=== PATIENT | male | born 1935 | race Caucasian/White ===

== ENCOUNTER 2017-03-12 14:11 | Emergency (ER) | payer MEDICARE, MEDICAID ==
[2017-03-12 14:39] VITALS: BP 129/55
--- NOTE | 2017-03-12 14:44 | UC ---
Upper Extremity HPI - HPI Summary HPI Summary: patient was bailing hay, tripped and fell landed with his right arm under his chest. pain in the right ribs, humerus and right clavicle. - History of Current Complaint Stated Complaint: RIGHTSIDE RIB,ARM,COLLAR PAIN-FALL 03/05 Time Seen by Provider: 03/12/17 14:32 Hx Obtained From: Patient ?: No Onset/Duration: Sudden Onset, Lasting Days Severity Initially: Moderate Severity Currently: Moderate Location Of Pain: Is Diffuse - upp right extremitiy, right ris, clavicle Character: Dull, Aching, Spasmodic, Stiffness Aggravating Factor(s): Movement Alleviating Factor(s): Nothing Associated Signs And Symptoms: Positive: Weakness Related History: Dominant Hand Right - Allergies/Home Medications Allergies/Adverse Reactions: Allergies Allergy/AdvReac Type Severity Reaction Status Date / Time No Known Allergies Allergy Verified 03/12/17 14:39 Home Medications: Home Medications Aspirin [Aspirin 81 MG TAB] 81 mg PO DAILY 03/12/17 [History Confirmed 03/12/17] Atorvastatin* [Lipitor*] 40 mg PO 1700 03/12/17 [History Confirmed 03/12/17] Insulin ASPART (NF) [Novolog (NF)] 0 units SUBCUT .enter frequency 03/12/17 [ History Confirmed 03/12/17] Insulin Detemir (NF) [Levemir (NF)] 50 unit SUBCUT BEDTIME 03/12/17 [History Confirmed 03/12/17] LevoCETirizine TAB (NF) [Xyzal TAB (NF)] 5 mg PO DAILY 03/12/17 [History Confirmed 03/12/17] Levothyroxine TAB* [Synthroid TAB*] 100 mcg PO DAILY 03/12/17 [History Confirmed 03/12/17] Magnesium [Magnesium] 400 mg PO DAILY 03/12/17 [History Confirmed 03/12/17] Midodrine HCl 10 mg PO DAILY PRN 03/12/17 [History Confirmed 03/12/17] Omeprazole CAP* [Prilosec CAP* 20 MG] 20 mg PO DAILY 03/12/17 [History Confirmed 03/12/17] Potassium Chlor TAB* [Klor Con ER TAB*] 60 meq PO DAILY 03/12/17 [History Confirmed 03/12/17] Torsemide TAB* [Demadex 20 MG*] 2 tab PO DAILY 03/12/17 [History Confirmed 03/12] PMH/Surg Hx/FS Hx/Imm Hx Previously Healthy: Yes - Surgical History Surgical History: Yes Surgery Procedure, Year, and Place: 2 hernia - Family History Known Family History: Negative: Cardiac Disease, Hypertension - Social History Alcohol Use: None Substance Use Type: None Smoking Status (MU): Never Smoked Tobacco Type: Smokeless Tobacco Amount Used/How Often: 1-2 times daily Review of Systems Constitutional: Negative Skin: Negative Eyes: Negative ENT: Negative Respiratory: Negative Cardiovascular: Negative Gastrointestinal: Negative Genitourinary: Negative Motor: Negative Neurovascular: Negative Musculoskeletal: Arthralgia, Decreased ROM, Myalgia Neurological: Negative Psychological: Negative All Other Systems Reviewed And Are Negative: Yes Physical Exam Triage Information Reviewed: Yes Vital Signs: Initial Vital Signs Temp 97.8 F 03/12/17 14:35 Pulse 74 03/12/17 14:35 Resp 16 03/12/17 14:35 BP 129/55 03/12/17 14:35 Pulse Ox 95 03/12/17 14:35 Vital Signs Reviewed: Yes Eye Exam: Normal Eyes: Positive: Conjunctiva Clear ENT Exam: Normal ENT: Positive: Hearing grossly normal, Pharynx normal, TMs normal Dental Exam: Normal Neck exam: Normal Neck: Positive: Supple, Nontender, No Lymphadenopathy Respiratory Exam: Normal Respiratory: Positive: Chest non-tender, Lungs clear, Normal breath sounds Cardiovascular Exam: Normal Cardiovascular: Positive: RRR, No Murmur, Pulses Normal Abdominal Exam: Normal Abdomen Description: Positive: Nontender, No Organomegaly, Soft Bowel Sounds: Positive: Present Musculoskeletal: Positive: No Edema, Strength Limited @ - in right upper extremity, ROM Limited @ - in right shoulder, right elbow ROM is full but elicits pain, moving fingers and wrist without difficulty Neurological Exam: Normal Psychological Exam: Normal Skin Exam: Normal Upper Extremity Course/Dx - Course Course Of Treatment: hx obtained, exam performed, meds reviewed, xrays taken, positive for 2 rib fractures, educated on what to watch for and conservative treatement - Differential Dx/Diagnosis Differential Diagnosis/HQI/PQRI: Contusion, Fracture (Closed), Strain, Sprain Provider Diagnoses: 2 rib fractures, right 6 and 7th Discharge - Discharge Plan Condition: Stable Disposition: HOME Referrals: Olivia Gonzales [Nurse Practitioner] - Additional Instructions: 1. take it easy, 2. Continue with tylenol 3. heat the area, take deep breaths 4.Follow up with any respiratory illness symptoms.
--- NOTE | 2017-03-12 15:46 | RAD ---
INDICATION: Right humerus injury. TECHNIQUE: 2 views of the right humerus were obtained. FINDINGS: The bones are in normal alignment. No fracture is seen. IMPRESSION: NO EVIDENCE FOR FRACTURE.
--- NOTE | 2017-03-12 15:47 | RAD ---
INDICATION: Right clavicle trauma. TECHNIQUE: 2 views of the right clavicle were obtained. FINDINGS: The bones are normal alignment. No fracture is seen. 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 IMPRESSION: NO EVIDENCE FOR FRACTURE.
--- NOTE | 2017-03-12 15:52 | RAD ---
INDICATION: Right rib injury. COMPARISON: Comparison is made with a prior x-ray study of the chest from the 2013. TECHNIQUE: 6 views of the right ribs were obtained. FINDINGS: There is a calcific density which projects over the right midlung likely representing pleural calcification. There is also pleural calcification at the right lung base possibly related to prior asbestos exposure. There are several old left lateral rib fractures. In addition there appear to be slightly displaced acute fractures of the right anterolateral sixth and seventh ribs. No pleural effusion is seen. IMPRESSION: 1. SLIGHTLY DISPLACED RIGHT ANTEROLATERAL SIXTH AND SEVENTH RIBS. 2. CALCIFIED PLEURAL PLAQUES SUGGESTIVE OF PRIOR ASBESTOS EXPOSURE.
== END 2017-03-12 16:28 | disposition home or self-care (01) ==
LOC: UCCORT 14:11
DX: S22.41XA Multiple fractures of ribs, right side, initial encounter for closed fracture (principal); W01.0XXA Fall on same level from slipping, tripping and stumbling without subsequent striking against object, initial encounter; Z79.82 Long term (current) use of aspirin; Z79.4 Long term (current) use of insulin; F17.290 Nicotine dependence, other tobacco product, uncomplicated
CPT/HCPCS: 99202; G0463

== ENCOUNTER 2017-11-06 07:27 | Emergency (ER) | payer MEDICARE, MEDICAID ==
[2017-11-06 07:44] VITALS: BP 105/91
--- NOTE | 2017-11-06 08:00 | ED ---
Upper Extremity Pain - HPI Summary HPI Summary: 81 yr old male with right little finger dysfunction. The patient caught his right little finger on a door four weeks ago and twisted it. Since then he has not been able to move his little finger, and it has been fixed straight. Denies pain. He has no other complaints. - History of Current Complaint Chief Complaint: UCUpperExtremity Stated Complaint: RIGHT PINKY FINGER Time Seen by Provider: 11/06/17 07:33 - Allergies/Home Medications Allergies/Adverse Reactions: Allergies Allergy/AdvReac Type Severity Reaction Status Date / Time No Known Allergies Allergy Verified 11/06/17 07:44 Home Medications: Home Medications Betamethasone Dip 0.05% ON(NF) [Betamethasone Dipr 0.05% OINT(NF)] 1 applic .SEE ORDER DAILY 11/06/17 [History Confirmed 11/06/17] Clotrimazole 1% CREAM* [Clotrimazole 1%*] 1 applic TOPICAL DAILY 11/06/17 [ History Confirmed 11/06/17] Fluticasone NASAL SPRAY 50MCG* [Flonase NASAL SPRAY 50MCG*] 2 spray BOTH NARES DAILY 11/06/17 [History Confirmed 11/06/17] Lisinopril TAB* [Prinivil TAB*] 5 mg PO DAILY 11/06/17 [History Confirmed ] Multivitamins/Minerals TAB* [Theragran/minerals TAB*] 1 tab PO DAILY 11/06/17 [ History Confirmed 11/06/17] PMH/Surg Hx/FS Hx/Imm Hx Endocrine/Hematology History: Reports: Hx Diabetes, Hx Thyroid Disease Cardiovascular History: Reports: Hx Pacemaker/ICD Denies: Hx Hypertension Respiratory History: Reports: Hx Chronic Obstructive Pulmonary Disease (COPD) - Cancer History Cancer Type, Location and Year: cataracts - Surgical History Surgery Procedure, Year, and Place: 2 hernia. pacemaker Infectious Disease History: No Infectious Disease History: Denies: Hx Human Immunodeficiency Virus (HIV), Traveled Outside the [place] in Last 30 Days - Family History Known Family History: Negative: Cardiac Disease, Hypertension - Social History Alcohol Use: Occasionally Substance Use Type: Reports: None Smoking Status (MU): Former Smoker Type: Smokeless Tobacco Amount Used/How Often: 1-2 times daily Review of Systems Constitutional: Negative Positive: Other - trauma little right finger with loss of ROM. All Other Systems Reviewed And Are Negative: Yes Physical Exam Triage Information Reviewed: Yes Vital Signs On Initial Exam: Initial Vitals Temp Pulse Resp BP Pulse Ox 97.6 F 72 20 105/91 97 11/06/17 07:37 11/06/17 07:37 11/06/17 07:37 11/06/17 07:37 11/06/17 07:37 Vital Signs Reviewed: Yes Appearance: Positive: Well-Appearing, No Pain Distress Skin: Positive: Warm, Skin Color Reflects Adequate Perfusion Head/Face: Positive: Normal Head/Face Inspection Eyes: Positive: EOMI ENT: Positive: Normal ENT inspection Respiratory/Lung Sounds: Positive: Other - normal respiratory effort Cardiovascular: Positive: Pulses are Symmetrical in both Upper and Lower Extremities - normal right upper extremity Abdomen Description: Negative: Distended Musculoskeletal: Positive: Other - right hand 5th digit without gross deformity. No focal tenderness. It is held in extended fashion and he is not able to flex it actively. Neurological: Positive: Alert, Oriented to Person Place, Time, CN Intact II-III , Normal Gait, Speech Normal Psychiatric: Positive: Normal - [place] Coma Scale Best Eye Response: 4 - Spontaneous Best Motor Response: 6 - Obeys Commands Best Verbal Response: 5 - Oriented Coma Scale Total: 15 Diagnostics - Vital Signs Vital Signs Temp Pulse Resp BP Pulse Ox 11/06/17 07:37 97.6 F 72 20 105/91 97 - Laboratory Lab Statement: Any lab studies that have been ordered have been reviewed, and results considered in the medical decision making process. - Radiology right hand Xray Interpretation: No Acute Changes Radiology Interpretation Completed By: Radiologist Course/Dx - Course Course Of Treatment: 81 yr old with right 5th digit injury. Xray read neg by radiology. Plan referral to ortho. His finger was keisha taped to the right ring finger. I contacted Dr Chavez office and they will get patient in for a visit RELL. - Diagnoses Provider Diagnoses: Contusion of right little finger Discharge - Sign-Out/Discharge Documenting (check all that apply): Discharge/Admit/Transfer - Discharge Plan Condition: Good Disposition: HOME Patient Education Materials: Finger Sprain (ED) Referrals: Amparo Hoffman MD [Primary Care Provider] - Dorian Chavez MD [Medical Doctor] - 1 Day - Billing Disposition and Condition Condition: GOOD Disposition: HOME
--- NOTE | 2017-11-06 08:25 | RAD ---
INDICATION: Right hand injury. TECHNIQUE: 4 views of the right hand were obtained. FINDINGS: There is soft tissue swelling in the fingers. The bones appear osteopenic. No fracture is seen. There is mild to moderate osteoarthritic change in the metacarpal phalangeal, proximal and distal interphalangeal joints. There are prominent vascular calcifications present. IMPRESSION: NO EVIDENCE FOR FRACTURE, IF THE PATIENT'S SYMPTOMS PERSIST, RECOMMEND FOLLOW-UP IMAGING.
== END 2017-11-06 08:59 | disposition home or self-care (01) ==
LOC: UCCORT 07:27
DX: S60.051A Contusion of right little finger without damage to nail, initial encounter (principal); X50.0XXA Overexertion from strenuous movement or load, initial encounter; Y92.9 Unspecified place or not applicable; Z87.891 Personal history of nicotine dependence
CPT/HCPCS: 99211; G0463

== ENCOUNTER 2017-11-13 12:18 | Day surgery (SDC) | payer MEDICARE, MEDICAID ==
[~2017-11-13 12:18] MED LIST: Buffered Lidocaine 0.9% SYRIN* 5 ML/SYR SYRINGE INTRADERM ONE; Famotidine TAB* 20 MG PO ONE
[2017-11-13] MEDS ORDERED: ceFAZolin 2 GM PREMIX (*) 2 GM/50 ML BAG IVPB ONE (12:33)
[2017-11-13] MEDS ORDERED: Famotidine TAB* 20 MG ONE (12:33)
[2017-11-13] MEDS ORDERED: fentaNYL* 50 MCG/ML 2 ML VIAL (100 MCG VIAL) ONE (13:16)
[2017-11-13] MEDS ORDERED: Midazolam* 1 MG/ML 2 ML VIAL (2 MG) ONE (13:16)
[2017-11-13] MEDS ORDERED: Insulin REGULAR(*) 1 UNITS UNIT SUBCUT ONE (13:52)
[2017-11-13] MEDS ORDERED: Insulin REGULAR(*) 1 UNITS UNIT ONE (13:57)
[2017-11-13] MEDS ORDERED: Bupivacaine 0.25% SDV* 30 ML ONE (15:15)
[2017-11-13] MEDS ORDERED: Lidocaine 2% PF * 5 ML VIAL ONE (16:34)
[2017-11-13] MEDS ORDERED: DiMENhydriNATE IV* 50 MG/ML VIAL ONE (16:34)
[2017-11-13] MEDS ORDERED: Dexamethasone IV* 4 MG/ML 1 ML (4 MG) ONE (16:34)
[2017-11-13] MEDS ORDERED: Propofol* 10 MG/ML 20 ML BTL IV PUSH ONE (16:34)
[2017-11-13] MEDS ORDERED: Acetaminophen TAB* 325 MG PO PRN (17:16)
[2017-11-13] MEDS ORDERED: HYDROmorphone INJ* 1 MG/ML CARPUJECT SYRINGE IV PRN (17:16)
[2017-11-13] MEDS ORDERED: Naloxone* 0.4 MG/ML 1 ML VIAL IV PRN (17:16)
[2017-11-13] MEDS ORDERED: DiMENhydriNATE IV* 50 MG/ML VIAL IV PUSH PRN (17:16)
[2017-11-13 17:52] VITALS: BP 143/73
--- NOTE | 2017-11-14 14:44 | OP ---
DATE OF OPERATION: 11/13/17 - [facility] DATE OF : 33 SURGEON: Ramiro Pennington MD. DECORATOR INSPECTOR: MARCO Rudolph. An admin assistant was needed for the procedure to aid in positioning of the arm and retraction. ANESTHESIOLOGIST: Dr. Arnold. ANESTHESIA: General. PRE-OP DIAGNOSIS: Spontaneous rupture, right small finger FDS and FDP tendon 1 month ago. POST-OP DIAGNOSIS: Spontaneous rupture, right small finger FDS and FDP tendon 1 month ago. OPERATIVE PROCEDURE: Repair of right small finger flexor tendon ruptures with right palmaris longus tendon graft transfer to the ring finger flexor digitorum profundus in the distal forearm. ESTIMATED BLOOD LOSS: 2 mL. COMPLICATIONS: None. INDICATIONS: Arnol was seen last week by me. A month ago, he felt a pop and since then he has been unable to flex his finger. I sent him to get an ultrasound, which confirmed that the rupture was within the palm. We talked to him about the ways that I could offer treating this which would be with a tendon transfer to the ring finger. I told him that I would likely need to take a tendon graft for that. He understood and wished to proceed . He understands that he likely would need an amputation as he was an uncontrolled diabetic. FINDINGS: See above and below. DESCRIPTION OF PROCEDURE: Arnol was seen in the preoperative holding area. The correct site, side, and procedure were identified. We came back to the operating room and the arm was prepped and draped in the usual fashion. A time- out was performed. The arm was exsanguinated with the Esmarch and the tourniquet was inflated to 250 mmHg. A Kg-type incision was made in the mid palm and the dissection was carried down, the palmar fascia was opened. The FDP and the FDS tendon stumps were identified in the palm. These were mobilized and I pulled on them, the small finger came down and touched the palm easily, the finger was very supple. I then made a 1-cm transverse incision just proximal to the wrist flexion crease. The palmaris longus tendon was delivered up into the wound and released distally. A tendon stripper was used to harvest the entire length of the tendon. The muscle was debrided off the proximal aspect. Proximal end was tubularized and secured with a 3-0 Ethibond suture over the last 10 cm at the tendon. At this point, I made a 5-cm longitudinal incision over the ulnar aspect of the distal forearm. Dissection was carried down between the ulnar neurovascular bundle and flexor tendons were encountered. The FDS and FDP to the small finger were encountered and left alone. The FDP to the ring finger was noted and tagged. I then used the tendon passer around the stump through the carpal tunnel out to the location of the tendon ruptures to the FDP tendon. I used the tendon passer to pull the graft into the tunnel. I then secured the distal aspect of the tendon graft to the FDP stump in a Pulvertaft weave fashion and this was secured with multiple 3-0 Ethibond sutures. I then performed a Pulvertaft weave proximally in the distal forearm wound to the ring finger FDP tendon. The small finger was set with just slightly more tension than the ring finger. The weave was secured with multiple 3-0 Ethibond sutures. The tension was checked. Everything was looking good. Therefore, I irrigated out the wounds. The wounds were all closed with 4-0 nylon suture. 4% plain Marcaine was infiltrated in all the operative wounds. The wounds were dressed with Xeroform , 4x4, sterile Webril, and a dorsal locking splint was applied, holding the wrist in neutral flexion and the MP joint in full flexion. He was then woken up and taken to recovery room in stable condition. [id number] #: [id number] AMOR
== END 2017-11-13 18:24 | disposition home or self-care (01) ==
LOC: OR 12:18
PROVIDERS: ATTEND Orthopaedic Surgery Hand Surgery
DX: S66.106A Unspecified injury of flexor muscle, fascia and tendon of right little finger at wrist and hand level, initial encounter (principal); E11.9 Type 2 diabetes mellitus without complications; Z79.4 Long term (current) use of insulin; Z95.0 Presence of cardiac pacemaker; I12.9 Hypertensive chronic kidney disease with stage 1 through stage 4 chronic kidney disease, or unspecified chronic kidney disease; Z79.899 Other long term (current) drug therapy; J44.9 Chronic obstructive pulmonary disease, unspecified; Z87.891 Personal history of nicotine dependence; N18.3 Chronic kidney disease, stage 3 (moderate); M19.90 Unspecified osteoarthritis, unspecified site; I35.0 Nonrheumatic aortic (valve) stenosis; X50.0XXA Overexertion from strenuous movement or load, initial encounter; Y92.9 Unspecified place or not applicable
CPT/HCPCS: A9270-GY; J0690; J1100; J1240; J2250; J2704; J3010

== ENCOUNTER 2019-03-27 13:12 | Emergency (ER) | payer MEDICARE, MEDICAID ==
--- OUTSIDE RECORDS SUMMARY | 2019-03-27 14:16 | XMS REPORT | Continuity of Care Document ---
:1935 External Reference #:[id number] Author Name Sheila Ventura Care Team Providers Name Role Phone Josselyn Jim MD - Care Team Information Clark Driver Nephrology Conrad Odom MD - Nephrology Care Team Information Clark Driver [phone] Amparo Hoffman MD - Internal Medicine Care Team Information Clark Driver Wiley Wilkerson MD - Endocrinology, Care Team Information Clark Driver Diabetes & Metabolism Nabil Hunt MD - Nephrology Care Team Information Clark Driver [phone] [facility] Nephrology Care Team Information Clark Driver [phone] Problems Active Problems Provider Date Edema Johny Merchant M.D., Onset: 11/01/2012 [facility] Malignant hypertensive heart disease Johny Merchant M.D., Onset: 2012 without congestive heart failure [facility] Renal failure syndrome Johny Merchant M.D., Onset: 11/01/2012 [facility] Diabetes mellitus Johny Merchant M.D., Onset: 11/01/2012 [facility] Dizziness and giddiness Johny Merchant M.D., Onset: 03/06/2013 [facility] Arthralgia of the lower leg Johny Merchant M.D., Onset: 03/18/2014 [facility] First degree atrioventricular block Johny Merchant M.D., Onset: 2014 [facility] Hypertensive heart disease without Johny Merchant M.D., Onset: 2014 heart failure [facility] Dyspnea Johny Merchant M.D., Onset: 03/08/2016 [facility] Aortic valve disorder Johny Merchant M.D., Onset: 03/08/2016 [facility] Mitral valve disorder Johny Merchant M.D., Onset: 03/08/2016 [facility] Chronic pulmonary heart disease Johny Merchant M.D., Onset: 03/08/2016 [facility] Bradycardia, unspecified Johny Merchant M.D., Onset: 03/08/2016 [facility] Chronic renal failure Johny Merchant M.D., Onset: 03/30/2016 [facility] Cardiac pacemaker in situ Johny Merchant M.D., Onset: 04/12/2016 [facility] Type 2 diabetes mellitus Johny Merchant M.D., Onset: 05/12/2016 [facility] Chronic kidney disease stage 4 Johny Merchant M.D., Onset: 05/12/2016 [facility] Tachycardia Johny Merchant M.D., Onset: 08/16/2016 [facility] Essential hypertension Jhony Merchant M.D., Onset: 08/16/2016 [facility] Hyperlipidemia Johny Merchant M.D., Onset: 08/16/2016 [facility] Hypothyroidism Amparo Hoffman MD Onset: 11/14/2016 Mixed hyperlipidemia Amparo Hoffman MD Onset: 11/14/2016 Chest pain Jonhy Merchant M.D., Onset: 03/16/2017 [facility] 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 Tinea pedis Amparo Hoffman MD Onset: 08/31/2017 Liver function tests abnormal Amparo Hoffman MD Onset: 11/03/2017 Chronic diastolic heart failure Jolynn Weems, TOMI, Onset: 2017 [employer] Paroxysmal ventricular tachycardia Johny Merchant M.D., Onset: 2018 [facility] Heart failure, unspecified Johny Merchant M.D., Onset: 11/08/2018 [facility] 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 Unknown smoker Smoking Status Reviewed: 01/22/19 Patient is a former quit 50 years ago. smoker Allergies, Adverse Reactions, Alerts Description No Known Drug Allergies Medications Active Medications SIG Qnty Indications Ordering Provider Date Amiodarone HCL 1 by mouth every 90tabs I48.1 Johny Merchant 02/21/2019 200mg day (start MSundar Jimenez, FACC Tablets 03/03/19) Klor-Con M10 4 tablets twice a I50.32 Johny Merchant 02/21/2019 10Meq day, take an extra M., MTonyDTony, FACC Tablets ER 2 tablets in the afternoon on MW only I50.9 Eliquis 1 tab by mouth twice 60tabs I48.1 Johny Merchant, 01/31/2019 2.5mg Tablets daily M.D., FACC Metolazone take 1 tab 30 I50.9 Johny Merchant, 01/31/2019 2.5mg minutes before M.D., FACC Tablets furosemide dose MWF Custom Molded custom molded 1Pair B35.1 Amparo Hoffman MD 01/22/2019 Diabetes Shoes diabetes shoes with inserts use daily E08.21 L84 Nitrostat 1 tab sl every 5 25tabs I25.10 Weems, Jolynn 10/26/2018 0.4mg Tablets min x3 chest pain TOMI Smalls, COVER MAKING MACHINE OPERATOR Sub Furosemide take 2 tablets by 120tabs I50.9 Weems, Jolynn 10/26/2018 40mg Tablets mouth twice a day TOMI Smalls, COVER MAKING MACHINE OPERATOR Pentips Pen Needle Use as Directed 100units Amparo Hoffman MD 10/17/2018 8mm Four Times A Day For Insulin Isosorbide take 1 tablet once 30tabs I50.32 Dank Jolynn 07/26/2018 Mononitrate ER daily Serina, MSN, COVER MAKING MACHINE OPERATOR 30mg Tablets ER 24HR R07.9 Betamethasone apply to affected 90gm Amparo Hoffman, 07/09/2018 Dipropionate area of right MD 0.05% Cream lower extremity daily for 2 weeks on and 2 weeks off Magnesium Take one tablet 60tabs Gagen, 04/17/2018 400mg Tablets two times a day MS Joseline, COVER MAKING MACHINE OPERATOR-C, CNM Levothyroxine Sodium 1 tab by mouth 90tabs E03.9 Amparo Hoffman, 06/05/2017 88mcg every day Tablets Levemir Flextouch 50 u subq at night 45ml Karolyn Wilkerson, 02/13/2017 100Unit/ML M.D. Solution Pen-Inject Pen Era 11/22" use as directed 1Box Amparo Hoffman, 01/24/2017 30G X 8 mm four times daily Misc for insulin Fluticasone Propionate spray 1-2 sprays 16gm Amparo Hoffman, 12/09/2016 in each nostril 50mcg/Act Suspension once every day Novolog Flexpen 14u sq before 45ml Amparo Hoffman, 12/06/2016 100Unit/ML breakfast 24u sq Solution Pen-Inject before lunch and dinner Atorvastatin Calcium take 1 tablet 90tabs Amparo Hoffman, 11/14/2016 40mg every evening Tablets Omeprazole 1 by mouth every 90caps Amparo Hoffman, 08/08/[address] day MD Collier Lancets use to test blood 200units Milton, 07/21/2016 Misc sugar 4x a day dx: MS Joseline, e11.9 COVER MAKING MACHINE OPERATOR-C, LALOM Nando Verio Check FS four 300units Amparo Hoffman, 07/21/2016 Strips times a day and if MD needed Pantoprazole Sodium 1 by mouth every Unknown 40mg day Tablets Metoprolol Succinate ER 1 tablet daily Unknown 25mg Tablets ER 24HR Combigan 1 drop both eyes Unknown 0.2-0.5% Solution twice a day Latanoprost 1 drop both eyes Unknown 0.005% Solution at hs Levocetirizine 1 by mouth every 30tabs Unknown Dihydrochloride night 5mg Tablets Aspirin 1 po qd 30tabs Unknown 81mg Tablets DR Multiple Vitamins Daily po qd Unknown Tablets History Medications Thaior-Con M10 take 4 tablets 100tabs Johny Merchant 02/15/2019 - twice daily. take Sundar Cole, [facility] Unknown 10Meq Tablets ER an extra 2 tablets m-- when metolazone is used Potassium 4 tablets twice a 270tabs Johny Merchant 02/14/2019 - Chloride Roxann ER day. Extra 2 Sundar Cole, [facility] Unknown tablets in the 10Meq Tablets ER afternoon on [facility] (when metolazone is used) Linette-Shabbir M10 2 tablets tid, I50.32 Johny Merchant 01/31/2019 - take an extra Sundar Cole, [facility] 02/21/2019 10Meq Tablets ER tablet in the Am and afternoon when taking metolazone I50.9 Metolazone take one tablet by 30tabs I50.9 Jolynn Weems 01/17/2019 - 2.5mg mouth 1/2 hour TOMI Smalls, 01/31/2019 Tablets prior to COVER MAKING MACHINE OPERATOR furosemide once daily as directed Paris Gonzalez0 2 by mouth every 90tabs I50.32 Johny Merchant 11/09/2018 - day Sundar Cole, [facility] 11/09/2018 10Meq Tablets ER Klor-Con 10 take 3tabs 360tabs I50.32 Johny Merchant 11/09/2018 - 10Meq am,3tabs Sundar Cole, [facility] 01/31/2019 Tablets ER afternoon,2tabs pm by mouth I50.9 Furosemide 3 tabs in am I50.9 Jolynn Weems 10/09/2018 - 40mg Tablets TOMI Smalls, [facility] 10/26/2018 Immunizations CPT Code Status Date Vaccine Lot # [id number] Given 03/27/2018 Influenza High Dose [id number] Given 03/24/2017 Influenza High Dose [id number] Given 05/16/2016 Influenza Vaccine (Fluzone) Age 3 And Older [id number] Given 06/25/2001 Pneumovax Injection Vital Signs Date Vital Result Comment 02/21/2019 1:27pm BP Systolic Sitting Left Arm 126 mmHg BP Diastolic Sitting Left Arm 62 mmHg Heart Rate 73 /min Respiratory Rate 18 /min Weight 247.00 lb O2 % BldC Oximetry 92 % Ora 01/31/2019 10:23am BP Systolic Sitting Right Arm 114 mmHg BP Diastolic Sitting Right Arm 68 mmHg Heart Rate 76 /min Respiratory Rate 16 /min Weight 244.00 lb O2 % BldC Oximetry 91 % Ora Results Test Date Facility Test Result H/L Range Note Basic Metabolic 02/21/2019 [facility] Glucose 243 mg/dL High 74-106 1 [address] [place] [address] [phone] BUN 48 mg/dL High 7-18 Creatinine 2.6 mg/dL High 0.6-1.3 Glom Filtration Rate, Estimate 25 mL/min >60 If 30 mL/min >60 2 BUN/Creat 18.4 ratio Sodium 136 mmol/L Normal 136-145 Potassium 3.1 mmol/L Low 3.5-5.1 Chloride 97 mmol/L Low 98-107 Carbon Dioxide 32 mmol/L Normal 21-32 Anion Gap 7 mEq/L Low 8-16 Calcium 9.9 mg/dL Normal 8.5-10.1 Laboratory test 02/21/2019 [facility] Magnesium 2.1 mg/dL Normal 1.8-2.4 finding [address] [place] [address] [phone] Basic Metabolic 02/14/2019 [facility] Glucose 76 mg/dL Normal 74-106 3 [address] [place] [address] [phone] BUN 44 mg/dL High 7-18 Creatinine 2.4 mg/dL High 0.6-1.3 Glom Filtration Rate, Estimate 28 mL/min >60 If 33 mL/min >60 4 BUN/Creat 18.3 ratio Sodium 140 mmol/L Normal 136-145 Potassium 3.2 mmol/L Low 3.5-5.1 Chloride 98 mmol/L Normal 98-107 Carbon Dioxide 33 mmol/L High 21-32 Anion Gap 9 mEq/L Normal 8-16 Calcium 9.3 mg/dL Normal 8.5-10.1 Order 01/31/2019 [facility] - Cardiology Dept. Echocardiogram <pending> [place] [address] [phone] EKG <pending> Basic Metabolic Panel 01/28/2019 [facility] Glucose 328 mg/dL High 74-[address] [place] [address] [phone] BUN 58 mg/dL High 7-18 Creatinine 2.9 mg/dL High 0.6-1.3 Glom Filtration Rate, Estimate 22 mL/min >60 If 27 mL/min >60 6 BUN/Creat 20.0 ratio Sodium 134 mmol/L Low 136-145 Potassium 3.6 mmol/L Normal 3.5-5.1 Chloride 92 mmol/L Low 98-107 Carbon Dioxide 33 mmol/L High 21-32 Anion Gap 9 mEq/L Normal 8-16 Calcium 9.2 mg/dL Normal 8.5-10.1 Laboratory test 01/28/2019 [facility] Thyroid 0.89 Normal 0.30-4.[address] Stim uIU/[place] [address] Hormone [phone] Free T4 1.35 ng/dL Normal 0.76-1.46 Comprehensive Metabolic 01/17/2019 [facility] Glucose 249 mg/dL High 74-106 [address] [place] [address] [phone] BUN 31 mg/dL High 7-18 Creatinine 2.3 mg/dL High 0.6-1.3 Glom Filtration Rate, Estimate 29 mL/min >60 If 35 mL/min >60 8 BUN/Creat 13.4 ratio Sodium 138 mmol/L Normal 136-145 Potassium 4.0 mmol/L Normal 3.5-5.1 Chloride 102 mmol/L Normal 98-107 Carbon Dioxide 28 mmol/L Normal 21-32 Anion Gap 8 mEq/L Normal 8-16 Calcium 9.0 mg/dL Normal 8.5-10.1 Total Protein 7.8 g/dL Normal 6.4-8.2 Albumin 3.4 g/dL Normal 3.4-5.0 Globulin 4.4 g/dL High 1.9-4.3 Alb/Glob 0.8 ratio Bilirubin,Total 0.4 mg/dL Normal 0.2-1.0 Sgot/Ast 30 U/L Normal 15-37 SGPT/Alt 22 U/L Normal 12-78 Alkaline Phosphatase 147 U/L High 45-117 Protein/Creatinine 01/17/2019 [facility] Creatinine,Urine 10.0 Not Ratio,Urine [address] mg/dL Estab. [place], [place] [id number] [phone] Protein,Total,Urine 8.9 mg/dL Not Estab. Protein/Creatinine Ratio 890 MG/GCRE High 0-200 9 Laboratory test 01/17/2019 [facility] PTH,Intact 68 pg/mL High 15-65 [address] [place] [address] [phone] Vitamin D,25-Hydroxy 42.4 ng/mL 30.0-100.0 11 Phosphorous 3.5 mg/dL Normal 2.5-4.0 Glycohemoglobin 01/17/2019 [facility] Glycohemoglobin 9.5 % High 4.2-6.[address] (A1c) [place] [address] [phone] eAG 226 mg/dL CBC W/Automated 01/17/2019 [facility] White Blood 7.7 K/uL Normal 3.4-10.[address] [place] [address] [phone] Red Blood Count 4.50 M/uL Normal 4.20-5.80 Hemoglobin 12.3 gm/dL Low 12.8-17.0 Hematocrit 38.9 % Normal 38.0-48.0 Mean Cell Volume 86.4 fl Normal 80.0-96.0 Mean Corpuscular HGB 27.3 pg Normal 27.0-33.0 Mean Corpuscular HGB Conc 31.6 g/dL Low 31.7-36.0 Platelet Count 341 K/uL Normal 155-360 Red Cell Distri Width SD 42.3 fl Normal 36-51 Red Cell Distri Width %CV 13.5 % Normal 11.6-15.8 Mean Platelet Volume 9.8 fl Normal 6.6-10.6 Neut% 39.5 % Normal 33.0-73.0 Lymph % 42.7 % High 20.0-42.0 Nicollet % 12.9 % High 0.0-10.0 Eo% 4.0 % Normal 0.0-6.6 Bas% 0.5 % Normal 0.0-1.1 Immature Grans 0.4 % Normal 0.0-5.0 NRBC % 0.0 /100WBC < 10/ 100 WBC Neut# 3.02 K/uL Normal 1.8-7.0 Lymph # 3.27 K/uL Normal 1.0-4.0 Nicollet # 0.99 K/uL High 0.0-0.8 Eos # 0.31 K/uL Normal 0.0-0.5 Baso # 0.04 K/uL Normal 0.0-0.1 Immature Grans Absolute 0.03 K/uL NRBC # 0.00 K/uL Basic Metabolic Panel 01/07/2019 [facility] Glucose 446 mg/dL High 74-106 13 [address] [place], [place] [id number] [phone] BUN 53 mg/dL High 7-18 Creatinine 3.1 mg/dL High 0.6-1.3 Glom Filtration Rate, Estimate 21 mL/min >60 If 25 mL/min >60 14 BUN/Creat 17.0 ratio Sodium 134 mmol/L Low 136-145 Potassium 3.6 mmol/L Normal 3.5-5.1 Chloride 96 mmol/L Low 98-107 Carbon Dioxide 28 mmol/L Normal 21-32 Anion Gap 10 mEq/L Normal 8-16 Calcium 8.9 mg/dL Normal 8.5-10.1 Basic Metabolic Panel 10/19/2018 [facility] Glucose 261 mg/dL High 74-106 15 [address] [place], [place] [address] [phone] BUN 60 mg/dL High 7-18 Creatinine 2.6 mg/dL High 0.6-1.3 Glom Filtration Rate, Estimate 25 mL/min >60 If 30 mL/min >60 16 BUN/Creat 23.0 ratio Sodium 136 mmol/L Normal 136-145 Potassium 3.5 mmol/L Normal 3.5-5.1 Chloride 94 mmol/L Low 98-107 Carbon Dioxide 36 mmol/L High 21-32 Anion Gap 6 mEq/L Low 8-16 Calcium 9.3 mg/dL Normal 8.5-10.1 Laboratory 09/25/2018 [facility] Vitamin 39.8 30.0-100.0 17, 18 test finding [address] D,25-Hydroxy ng/[place] [address] [phone] Ua RFX Micro & 09/25/2018 [facility] Urine Color YELLOW Yellow Culture II [address] [place], [place] [address] [phone] Urine Clarity CLEAR Clear Urine Glucose - Dipstick 500 mg/dL High Negative Urine Bilirubin - Dipstick NEGATIVE Negative Urine Ketone NEGATIVE mg/dL Negative Urine Specific [place] 1.010 Normal 1.010-1.030 Urine Blood NEGATIVE Negative Urine PH 7.0 Normal 6.5-7.5 Urine Protein - Dipstick TRACE mg/dL Negative Urine Urobilinogen - Dipstick 0.2 E.U./dL Normal 0.2-1.0 Urine Nitrite - Dipstick NEGATIVE Negative Urine Leuk Esterase NEGATIVE Negative Source: URINE, CLEAN CAT <SEE NOTE> 19 Protein/Creatinine 09/25/2018 [facility] Creatinine,Urine 47.7 Not Ratio,Urine [address] mg/dL Estab. [place], [place] [id number] [phone] Protein,Total,Urine 23.2 mg/dL Not Estab. Protein/Creatinine Ratio 486 MG/GCRE High 0-200 20 Laboratory test 09/25/2018 [facility] Phosphorous 3.5 mg/dL Normal 2.5-4.0 finding [address] [place], [place] [id number] [phone] PTH,Intact 80 pg/mL High 15-65 21 Basic Metabolic Panel 09/25/2018 [facility] Glucose 263 mg/dL High 74-106 [address] [place], [place] [id number] [phone] BUN 59 mg/dL High 7-18 Creatinine 3.0 mg/dL High 0.6-1.3 Glom Filtration Rate, Estimate 21 mL/min >60 If 26 mL/min >60 22 BUN/Creat 19.6 ratio Sodium 136 mmol/L Normal 136-145 Potassium 3.5 mmol/L 3.5-5.1 Chloride 98 mmol/L Normal 98-107 Carbon Dioxide 31 mmol/L Normal 21-32 Anion Gap 7 mEq/L Low 8-16 Calcium 8.5 mg/dL Normal 8.5-10.1 Glycohemoglobin 09/25/2018 [facility] Glycohemoglobin 9.1 % High 4.2-6.3 [address] (A1c) [place], [place] [id number] [phone] eAG 214 mg/dL 1 I48.0, I42.9 2 Note: Persistent reduction for 3 months or more in an eGFR <60 mL/min/1.73 m2 defines CKD. Patients with eGFR values >/=60 mL/min/1.73 m2 may also have CKD if evidence of persistent proteinuria is present. The original MDRD equation for estimated GFR is not valid for patients less than 18 years of age. Additional information may be found at www.kdoqi.org. 3 I35.0 I25.10 I50.9 4 Note: Persistent reduction for 3 months or more in an eGFR <60 mL/min/1.73 m2 defines CKD. Patients with eGFR values >/=60 mL/min/1.73 m2 may also have CKD if evidence of persistent proteinuria is present. The original MDRD equation for estimated GFR is not valid for patients less than 18 years of age. Additional information may be found at www.kdoqi.org. 5 E03.9 I50.9 6 Note: Persistent reduction for 3 months or more in an eGFR <60 mL/min/1.73 m2 defines CKD. Patients with eGFR values >/=60 mL/min/1.73 m2 may also have CKD if evidence of persistent proteinuria is present. The original MDRD equation for estimated GFR is not valid for patients less than 18 years of age. Additional information may be found at www.kdoqi.org. 7 N18.4, E08.21, N18.4 8 Note: Persistent reduction for 3 months or more in an eGFR <60 mL/min/1.73 m2 defines CKD. Patients with eGFR values >/=60 mL/min/1.73 m2 may also have CKD if evidence of persistent proteinuria is present. The original MDRD equation for estimated GFR is not valid for patients less than 18 years of age. Additional information may be found at www.kdoqi.org. 9 INFCE Result Units: mg/g creat Performed at: [facility] [address] [id number] Access Director: Tanika Arndt MD, Phone: [phone] Performed at: [address] [id number] Access Director: Tanika Arndt MD, Phone: [phone] 11 Vitamin D deficiency has been defined by the [place] of [employer] and an Endocrine Society practice guideline as a level of serum 25-OH vitamin D less than 20 ng/mL (1,2). The Endocrine Society went on to further define vitamin D insufficiency as a level between 21 and 29 ng/mL (2). 1. IOM ([place] of [employer]). 2010. Dietary reference intakes for calcium and D. [place]: The National Academies Press. 2. Amalia MF, Albino NC, Andrea DELGADILLO, et al. Evaluation, treatment, and prevention of vitamin D deficiency: an Endocrine Society clinical practice guideline. JCEM. 2010; 96(7):1911-30. Performed at: [facility] [address] [id number] Access Director: Tanika Arndt MD, Phone: [phone] 12 Elevated levels of HbA1c suggest the need for more aggressive treatment of glycemia. The [place] Diabetes Association recommends that a primary goal of therapy should be a HbA1c of <7% and that physicians should re-evaluate the treatment regimen in patients with HbA1c values consistently >8%. 13 Z95.2 14 Note: Persistent reduction for 3 months or more in an eGFR <60 mL/min/1.73 m2 defines CKD. Patients with eGFR values >/=60 mL/min/1.73 m2 may also have CKD if evidence of persistent proteinuria is present. The original MDRD equation for estimated GFR is not valid for patients less than 18 years of age. Additional information may be found at www.kdoqi.org. 15 I50.9 16 Note: Persistent reduction for 3 months or more in an eGFR <60 mL/min/1.73 m2 defines CKD. Patients with eGFR values >/=60 mL/min/1.73 m2 may also have CKD if evidence of persistent proteinuria is present. The original MDRD equation for estimated GFR is not valid for patients less than 18 years of age. Additional information may be found at www.kdoqi.org. 17 E08.21 N18.4 18 Vitamin D deficiency has been defined by the [place] of [employer] and an Endocrine Society practice guideline as a level of serum 25-OH vitamin D less than 20 ng/mL (1,2). The Endocrine Society went on to further define vitamin D insufficiency as a level between 21 and 29 ng/mL (2). 1. IOM ([place] of [employer]). 2010. Dietary reference intakes for calcium and D. [place]: The National Academies Press. 2. Amalia MF, Albino GAMBOA, Andrea DELGADILLO, et al. Evaluation, treatment, and prevention of vitamin D deficiency: an Endocrine Society clinical practice guideline. JCEM. 2010; 96(7):1911-30. Performed at: - [facility] [address] [id number] Access Director: Tanika Arndt MD, Phone: [phone] URINE, CLEAN CATCH 20 INFCE Result Units: mg/g creat Performed at: RN - [facility] [address] [id number] Access Director: Tanika Arndt MD, Phone: [phone] Performed at: [facility] [address] [id number] Access Director: Tanika Ardnt MD, Phone: [phone] Note: Persistent reduction for 3 months or more in an eGFR <60 mL/min/1.73 m2 defines CKD. Patients with eGFR values >/=60 mL/min/1.73 m2 may also have CKD if evidence of persistent proteinuria is present. The original MDRD equation for estimated GFR is not valid for patients less than 18 years of age. Additional information may be found at www.kdoqi.org. 23 Elevated levels of HbA1c suggest the need for more aggressive treatment of glycemia. The [place] Diabetes Association recommends that a primary goal of therapy should be a HbA1c of <7% and that physicians should re-evaluate the treatment regimen in patients with HbA1c values consistently >8%. Procedures Date Code Description Status 02/21/2019 17426 EKG-Tracing And Report Completed 01/31/2019 61015 Echocardiogram Complete Completed 01/31/2019 49953 Pacemaker Interrogaton Eval In Person Completed 01/31/2019 83173 EKG Interpretation And Report Only Completed 01/31/2019 42985 EKG-Tracing And Report Completed 01/17/2019 86873 EKG-Tracing And Report Completed 12/10/2018 74951 Debridement Nails Any Method 6 Or More Completed 12/10/2018 33828 Pare Hyperkeratotic Lesion, Single Completed 10/26/2018 53671 Dual Pacemaker Programming Anayisis, Review And Report Completed 10/09/2018 21341 Dual Pacemaker Programming Anayisis, Review And Report Completed 09/04/2018 73583 Debridement Nails Any Method 1-5 Completed 09/04/2018 98224 Trim Nondystrophic Nails Completed 09/04/2018 71638 Pare Hyperkeratotic Lesion, Single Completed 08/30/2018 69543 Bronchospasm Provocation Evaluation Multi Spirometric Completed Determinati 08/30/2018 58984 Spirometry Completed 02/07/2018 [id number] Diabetic Foot Exam Completed 07/10/2015 [id number] Colonoscopy Completed Medical Devices Description No Information Available Encounters Type Date Location Provider Dx Diagnosis Office Visit 02/21/2019 Cardiology Office Kia Dominguez I48.1 Persistent atrial 1:20p B., PA fibrillation I42.9 Cardiomyopathy, unspecified Z95.0 Presence of cardiac pacemaker I50.9 Heart failure, unspecified N18.4 Chronic kidney disease, stage 4 (severe) Z95.2 Presence of prosthetic heart valve I25.10 Athscl heart disease of [place] coronary artery w/o ang pctrs Office Visit 01/31/2019 10:45a Cardiology Office Angelica I48.0 Paroxysmal atrial Marlyss B., PA fibrillation I50.9 Heart failure, unspecified I42.9 Cardiomyopathy, unspecified I47.2 Ventricular tachycardia Z95.2 Presence of prosthetic heart valve I35.0 Nonrheumatic aortic (valve) stenosis I25.10 Athscl heart disease of [place] coronary artery w/o ang pctrs Z95.0 Presence of cardiac pacemaker Office Visit 01/22/2019 8:40a Primary Care Amparo Hoffman, I35.0 Nonrheumatic aortic Office MD (valve) stenosis N18.4 Chronic kidney disease, stage 4 (severe) E08.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 R60.0 Localized edema I50.9 Heart failure, unspecified Office Visit 01/17/2019 10:20a Cardiology Jolynn Weems I50.9 Heart failure , Office TOMI Smalls, unspecified COVER MAKING MACHINE OPERATOR I35.0 Nonrheumatic aortic (valve) stenosis I25.10 Athscl heart disease of [place] coronary artery w/o ang pctrs I47.2 Ventricular tachycardia N18.4 Chronic kidney disease, stage 4 (severe) Z95.0 Presence of cardiac pacemaker Office Visit 12/10/2018 8:45a Podiatry Office Sharan, I70.203 Unsp athscl [place] Gualberto, DPM arteries of extremities, bilateral legs E11.9 Type 2 diabetes mellitus without complications B35.1 Tinea unguium L84 Corns and callosities M79.672 Pain in left foot M79.671 Pain in right foot Office Visit 11/08/2018 2:20p Cardiology Johny Merchant I50.9 Heart failure, Office Sundar Cole, [facility] unspecified I35.0 Nonrheumatic aortic (valve) stenosis I25.10 Athscl heart disease of [place] coronary artery w/o ang pctrs I47.2 Ventricular tachycardia N18.4 Chronic kidney disease, stage 4 (severe) R42 Dizziness and giddiness Z95.0 Presence of cardiac pacemaker Office Visit 10/26/2018 1:20p Cardiology Jolynn Weems I50.9 Heart failure , Office TOMI Smalls, unspecified [employer]OVER MAKING MACHINE OPERATOR I35.0 Nonrheumatic aortic (valve) stenosis I25.10 Athscl heart disease of [place] coronary artery w/o ang pctrs I47.2 Ventricular tachycardia Z95.0 Presence of cardiac pacemaker I48.4 Atypical atrial flutter N18.4 Chronic kidney disease, stage 4 (severe) Office Visit 10/09/2018 Cardiology Jolynn Weems I35.0 Nonrheumatic 10:00a Office TOMI Smalls, aortic (valve) COVER MAKING MACHINE OPERATOR stenosis I50.9 Heart failure, unspecified I25.10 Athscl heart disease of [place] coronary artery w/o ang pctrs I47.2 Ventricular tachycardia Z95.0 Presence of cardiac pacemaker I48.4 Atypical atrial flutter N18.4 Chronic kidney disease, stage 4 (severe) Office Visit 10/02/2018 9:30a Primary Care [place], E08.21 Diabetes due to Office Joseline, , underlying COVER MAKING MACHINE OPERATOR-C, CNM condition w diabetic nephropathy I35.0 Nonrheumatic aortic (valve) stenosis I50.32 Chronic diastolic (congestive) heart failure N18.4 Chronic kidney disease, stage 4 (severe) B35.1 Tinea unguium R60.0 Localized edema Assessments Date Code Description Provider 02/21/2019 I48.1 Persistent atrial fibrillation Angelica Marlyss B., PA 02/21/2019 I42.9 Cardiomyopathy, unspecified Angelica, Marlyss B., PA 02/21/2019 Z95.0 Presence of cardiac pacemaker Sivan Dominguezlyss B., PA 02/21/2019 I50.9 Heart failure, unspecified Angelica, Marlyss B., PA 02/21/2019 N18.4 Chronic kidney disease, stage 4 Angelica, Marlyss B., PA (severe) 02/21/2019 Z95.2 Presence of prosthetic heart valve Sivan Dominguezlyss B., PA 02/21/2019 I25.10 Atherosclerotic heart disease of Fanta Dominguezs B., PA [place] coronary artery with 01/31/2019 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 Johny Merchant M.D., disorders [facility] 01/31/2019 I36.1 Nonrheumatic tricuspid (valve) Johny Merchant M.D., insufficiency [facility] 01/31/2019 Z95.2 Presence of prosthetic heart valve Johny Merchant M.D., [facility] 01/31/2019 I47.2 Ventricular tachycardia Johny Merchant M.D., [facility] 01/31/2019 I48.0 Paroxysmal atrial fibrillation Angelica Marlyss B., PA 01/31/2019 I50.9 Heart failure, unspecified Angelica, Marlyss B., PA 01/31/2019 I47.2 Ventricular tachycardia Angelica Marlyss B., PA 01/31/2019 I42.9 Cardiomyopathy, unspecified Angelica, Marlyss B., PA 01/31/2019 Z95.0 Presence of cardiac pacemaker Johny Merchant M.D., [facility] 01/31/2019 I47.2 Ventricular tachycardia AngelicaSivanivone Mar, PA 01/31/2019 Z95.2 Presence of prosthetic heart valve Kia Dominguez., PA 01/31/2019 I35.0 Nonrheumatic aortic (valve) stenosis Kia Dominguez, PA 01/31/2019 I25.10 Atherosclerotic heart disease of AngelicaFantamartinez Mar, PA [place] coronary artery with 01/31/2019 Z95.0 Presence of cardiac pacemaker Kia Dominguez, PA 01/31/2019 Z95.0 Presence of cardiac pacemaker Kia Dominguez, PA 01/22/2019 I35.0 Nonrheumatic aortic (valve) stenosis Amparo Hoffman MD 01/22/2019 N18.4 Chronic kidney disease, stage 4 Amparo Hoffman MD (severe) 01/22/2019 E08.21 Diabetes mellitus due to underlying Amparo Hoffman MD condition with diabetic 01/22/2019 R60.0 Localized edema Amparo Hoffman MD 01/22/2019 I50.9 Heart failure, unspecified Amparo Hoffman MD 01/17/2019 I50.9 Heart failure, unspecified Jolynn Weems, TOMI, [facility] 01/17/2019 I35.0 Nonrheumatic aortic (valve) stenosis Jolynn Weems , TOMI, [facility] 01/17/2019 I25.10 Atherosclerotic heart disease of Jolynn Weems MSN, [place] coronary artery with [facility] 01/17/2019 I47.2 Ventricular tachycardia Jolynn Weems, TOMI, [facility] 01/17/2019 N18.4 Chronic kidney disease, stage 4 Jolynn Weems, TOMI , (severe) [facility] 01/17/2019 Z95.0 Presence of cardiac pacemaker Jolynn Weems, TOMI, [facility] 12/10/2018 I70.203 Unspecified atherosclerosis of [place] Gualberto Tsang DPM arteries of extremitie 12/10/2018 E11.9 Type 2 diabetes mellitus without Gualberto Tsang DPM complications 12/10/2018 B35.1 Tinea unguium Gualberto Tsang, [facility] 12/10/2018 L84 Corns and callosities Gualberto Tsang, [facility] 12/10/2018 M79.672 Pain in left foot Gualberto Tsang, [facility] 12/10/2018 M79.671 Pain in right foot Gualberto Tsang, [facility] 11/08/2018 I50.9 Heart failure, unspecified Johny Merchant M.D., [facility] 11/08/2018 I35.0 Nonrheumatic aortic (valve) stenosis Johny Merchant M.D., [facility] 11/08/2018 I25.10 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. , [place] coronary artery with [facility] 11/08/2018 I47.2 Ventricular tachycardia Johny Merchant M.D., [facility] 11/08/2018 N18.4 Chronic kidney disease, stage 4 Johny Merchant M.D., (severe) [facility] 11/08/2018 R42 Dizziness and giddiness Johny Merchant M.D., [facility] 11/08/2018 Z95.0 Presence of cardiac pacemaker Johny Merchant M.D., [facility] 10/26/2018 I50.9 Heart failure, unspecified Jolynn Weems MSN, [facility] 10/26/2018 I35.0 Nonrheumatic aortic (valve) stenosis Jolynn Weems MSN, [facility] 10/26/2018 I25.10 Atherosclerotic heart disease of Jolynn Weems, TOMI, [place] coronary artery with [facility] 10/26/2018 I47.2 Ventricular tachycardia Jolynn Weems MSN, [facility] 10/26/2018 Z95.0 Presence of cardiac pacemaker Jolynn Weems, TOMI, [facility] 10/26/2018 I48.4 Atypical atrial flutter Jolynn Weems MSN, [facility] 10/26/2018 N18.4 Chronic kidney disease, stage 4 Jolynn Weems, TOMI , (severe) [facility] 10/09/2018 I47.2 Ventricular tachycardia Johny Merchant M.D., [facility] 10/09/2018 I47.2 Ventricular tachycardia Kia Dominguez, PA 10/09/2018 I35.0 Nonrheumatic aortic (valve) stenosis Jolynn Weems , TOMI, [facility] 10/09/2018 Z95.0 Presence of cardiac pacemaker Johny Merchant M.D., [facility] 10/09/2018 I50.9 Heart failure, unspecified Jolynn Weems, TOMI, [facility] 10/09/2018 I44.0 Atrioventricular block, first degree Johny Merchant M.D., [facility] 10/09/2018 I25.10 Atherosclerotic heart disease of Jolynn Weems, TOMI, [place] coronary artery with [facility] 10/09/2018 Z95.0 Presence of cardiac pacemaker Kia Dominguez, PA 10/09/2018 I47.2 Ventricular tachycardia Jolynn Weems, TOMI, [facility] 10/09/2018 I44.0 Atrioventricular block, first degree Kia Dominguez, PA 10/09/2018 Z95.0 Presence of cardiac pacemaker Jolynn Weems, TOMI, [facility] 10/09/2018 I48.4 Atypical atrial flutter Jolynn Weems, TOMI, [facility] 10/09/2018 N18.4 Chronic kidney disease, stage 4 Jolynn Weems, TOMI , (severe) [facility] 10/02/2018 E08.21 Diabetes mellitus due to underlying Joseline Rose MS , COVER MAKING MACHINE OPERATOR-C, condition with diabetic [facility] 10/02/2018 I35.0 Nonrheumatic aortic (valve) stenosis Joseline Rose MS , COVER MAKING MACHINE OPERATOR-C, [facility] 10/02/2018 I50.32 Chronic diastolic (congestive) heart Joseline Rose MS , COVER MAKING MACHINE OPERATOR-C, failure [facility] 10/02/2018 N18.4 Chronic kidney disease, stage 4 Joseline Rose, , COVER MAKING MACHINE OPERATOR- C, (severe) [facility] 10/02/2018 B35.1 Tinea unguium Joseline Rose MS, ROMANA, CN 10/02/2018 R60.0 Localized edema Joseline Rose, MS, COVER MAKING MACHINE OPERATOR-C, CN 09/26/2018 E08.21 Diabetes mellitus due to underlying Amparo Hoffman MD condition with diabetic 09/26/2018 I35.0 Nonrheumatic aortic (valve) stenosis Amparo Hoffman MD 09/26/2018 I50.32 Chronic diastolic (congestive) heart Amparo Hoffman MD failure 09/26/2018 N18.4 Chronic kidney disease, stage 4 Amparo Hoffman MD (severe) 09/04/2018 I70.203 Unspecified atherosclerosis of [place] Gualberto Tsang DPM arteries of extremitie 09/04/2018 E11.9 Type 2 diabetes mellitus without Gualberto Tsang DPM complications 09/04/2018 B35.1 Tinea unguium Gualberto Tsang DPM 09/04/2018 L84 Corns and callosities Gualberto Tsang DPM 09/04/2018 M20.22 Hallux rigidus, left foot Gualberto Tsang DPM 09/04/2018 M20.21 Hallux rigidus, right foot Gualberto Tsang DPM 08/30/2018 I35.0 Nonrheumatic aortic (valve) stenosis Tod Tapia MD Plan of Treatment Future Appointment(s):04/12/2019 9:00 am - Kia Dominguez PA at Cardiology [id number]/26/2019 9:15 am - Kia Dominguez PA at Cardiology Office Functional Status Functional Condition Comment Date Status Independent with all ADL's Active Oxygen 2 L 24/hr Active Standard cane is used to ambulate Active Mental Status Description No Information Available Referrals Refer to Reason for Referral Status Appt Date [facility] Nephrology Patient used to see group before. Est care Created CKD stage 4. DM retinopathy, neuropathy and nephropathy Aortic stenosis s/p TAVR CHF on diuretics, hx of CAD Baseline Cr 2.3-2.5 02/07/19 faxed notes.... LE 02/19/19 refaxed notes... LE [address] [id number] [phone] Samy Mcclain M.D. Referral for TAVR. Closed 11/27/2018 [facility] [place], [place] [address] [phone]
--- OUTSIDE RECORDS SUMMARY | 2019-03-27 14:16 | XMS REPORT | Summary of Care ---
:1935 Author Organization [facility] Address [address] [facility] [place] [address] Care Team Providers Name Role Phone Amparo Hoffman MD Primary Care Provider Reason for Visit Reason Comments Diabetes Mellitus Pt reports checking blood sugar TID. Follow Up Encounter Details Date Type Department Care Team Description 03/21/2019 Office Visit [facility] Omer, DM (diabetes mellitus), [address] [facility] type 2, [place] [address] [address] with complications [phone] [place] ([facility]) (Primary Dx) [place] [id number] [phone] Allergies No Known Allergiesdocumented as of this encounter (statuses as of 03/21/2019) Medications Medication Sig Dispensed Refills Start End Date Status Date Potassium Take 2 Tabs by 0 Active (POTASSIMIN PO) mouth THREE TIMES DAILY. 2 tab am, noon, pm Magnesium 400 MG Take 400 mg by 0 Active Oral Cap mouth TWICE DAILY. levothyroxine Take 88 mcg by 0 Active (SYNTHROID) 88 MCG mouth BEFORE Oral Tab BREAKFAST. atorvastatin Take 40 mg by 0 Active (LIPITOR) 40 MG mouth DAILY. Oral Tab Omeprazole 20 MG Take 20 mg by 0 Active Oral Tab EC mouth DAILY. Aspirin 81 MG Oral Take 81 mg by 0 Active Tab mouth DAILY. Multiple Take 1 Tab by 0 Active Vitamins-Minerals mouth DAILY. (MULTIVITAMIN ADULT PO) Glucose Blood In 1 Strip by In 0 Active Vitro Strip Vitro route THREE TIMES DAILY. One touch verio Lancets Does not 1 Each by Does not 0 Active apply Misc apply route THREE TIMES DAILY. One touch verio latanoprost 1 Drop DAILY. 0 Active (XALATAN) 0.005 % Ophthalmic Solution metolazone Take 2.5 mg by 0 Active (ZAROXOLYN) 2.5 MG mouth DAILY. Oral TabIndications: 30 minutes before torsemide if needed for fluid retention, use for 3 days at a time FLUTICASONE FUROATE [place] in nose. 0 Active NA Blood Glucose 1 Each by Does not 1 Kit 0 Active Monitoring Suppl apply route FOUR 8 (ONETOUCH VERIO IQ TIMES DAILY. E11.9 SYSTEM) w/Device Insulin dependant Does not apply Kit isosorbide Take 30 mg by 0 Active MONOnitrate (IMDUR) mouth DAILY. 30 MG Oral TABLET SR 24 HR Levocetirizine Take 1 Tab by 0 Active Dihydrochloride 5 mouth DAILY. MG Oral Tab furosemide (LASIX) Take 80 mg by 0 Active 40 MG Oral Tab mouth TWICE DAILY. Am and noon Brimonidine Place to the 0 Active Tartrate-Timolol external eye (COMBIGAN) 0.2-0.5 DIRECTED. % Ophthalmic Solution Insulin Aspart Inject 14-24 Units 15 mL 5 Active (NOVOLOG FLEXPEN) beneath the skin 9 100 UNIT/ML THREE TIMES DAILY Subcutaneous BEFORE MEALS. MDD Solution 72 units Pen-injectorIndicat Indications: 14 ions: 14 units am, units am, 24 units 24 units afternoon afternoon and and evening evening metoprolol take 1 tablet by 30 Tab 0 Active succinate (TOPROL mouth once daily 9 XL) 25 MG Oral TABLET SR 24 HR LEVEMIR FLEXTOUCH inject 50 units 15 mL Active 100 UNIT/ML subcutaneously 9 Subcutaneous daily Solution Pen-injector apixaban (ELIQUIS) Take 2.5 mg by 0 Active 2.5 MG Oral Tab mouth TWICE DAILY. MAGNESIUM PO Take 400 mg by 0 Active mouth DAILY. 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 documented as of this encounter Last Filed Vital Signs Vital Sign Reading Time Taken Comments Blood Pressure 128/70 03/21/2019 1:15 PM EDT Pulse 88 03/21/2019 1:15 PM EDT Temperature - - Respiratory Rate - - Oxygen Saturation - - Inhaled Oxygen Concentration - - Weight 113.4 kg (250 lb 1.6 oz) 03/21/2019 1:15 PM EDT Height 172.7 cm (5' 8") 03/21/2019 1:15 PM EDT Body Mass Index 38.03 03/21/2019 1:15 PM EDT documented in this encounter Patient Instructions Patient InstructionsMary Carmen Tello FNP - 03/21/2019 1:20 PM EDTNEW INJECTION SITE INCREASE LEVEMIR TO 56 UNITS documented in this encounter Progress Notes Mary Carmen Tello FNP - 03/21/2019 1:20 PM EDT NAME: Arnol Baxter : 1935 DATE: 03/21/2019 SUBJECTIVE: Arnol Baxter is a 83-y.o. male is here for follow up for his Diabetes Mellitus type 2 for 54 years. Today , he is accompanied by his son. A1C unchanged at 9.5. Blood sugars reviewed. He is testing 4 times daily Range > 200. He feels he does pretty well with diet, apparently his family keeps a pretty close eye on him. 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 Denies any episode of hypoglycemia requiring assistance. Reports he feels low by 70. Is current on opthalmologic exam. Reports no history of retinopathy. Has distal neuropathy. Has stage IV CKD and follows withnephrology in [place]. Has a pacemaker and follows with Cardiology in [place]. Current medications, allergies, and all history have been reviewed. Current Outpatient Medications Medication Sig apixaban (ELIQUIS) 2.5 MG Oral Tab Take 2.5 mg by mouth TWICE DAILY. Aspirin 81 MG Oral Tab Take 81 mg by mouth DAILY. atorvastatin (LIPITOR) 40 MG Oral Tab Take 40 mg by mouth DAILY. Blood Glucose Monitoring Suppl (99times.cn VERIO IQ SYSTEM) w/Device Does not apply Kit 1 Each by Does not apply route FOUR TIMES DAILY. E11.9 Insulin dependant Brimonidine Tartrate-Timolol (COMBIGAN) 0.2-0.5 % Ophthalmic Solution Place to the external eye DIRECTED. FLUTICASONE FUROATE NA [place] in nose. furosemide (LASIX) 40 MG Oral Tab Take 80 mg by mouth TWICE DAILY. Am and noon Glucose Blood In Vitro Strip 1 Strip by In Vitro route THREE TIMES DAILY. One touch verio Insulin Aspart (NOVOLOG FLEXPEN) 100 UNIT/ML Subcutaneous Solution Pen- injector Inject 14-24 Units beneath the skin THREE TIMES DAILY BEFORE MEALS. MDD 72 units Indications: 14 units am, 24 units afternoon and evening isosorbide MONOnitrate (IMDUR) 30 MG Oral TABLET SR 24 HR Take 30 mg by mouth DAILY. Lancets Does not apply Misc 1 Each by Does not apply route THREE TIMES DAILY. One touch verio latanoprost (XALATAN) 0.005 % Ophthalmic Solution 1 Drop DAILY. LEVEMIR FLEXTOUCH 100 UNIT/ML Subcutaneous Solution Pen-injector inject 50 units subcutaneously daily Levocetirizine Dihydrochloride 5 MG Oral Tab Take 1 Tab by mouth DAILY. levothyroxine (SYNTHROID) 88 MCG Oral Tab Take 88 mcg by mouth BEFORE BREAKFAST. Magnesium 400 MG Oral Cap Take 400 mg by mouth TWICE DAILY. MAGNESIUM PO Take 400 mg by mouth DAILY. metolazone (ZAROXOLYN) 2.5 MG Oral Tab Take 2.5 mg by mouth DAILY. metoprolol succinate (TOPROL XL) 25 MG Oral TABLET SR 24 HR take 1 tablet by mouth once daily Multiple Vitamins-Minerals (MULTIVITAMIN ADULT PO) Take 1 Tab by mouth DAILY. Omeprazole 20 MG Oral Tab EC Take 20 mg by mouth DAILY. Potassium (POTASSIMIN PO) Take 2 Tabs by mouth THREE TIMES DAILY. 2 tab am, noon, pm No current facility-administered medications for this visit. No Known Allergies Past Medical History: Diagnosis Date GERD (gastroesophageal reflux disease) Social History Socioeconomic History Marital status: Spouse name: Not on file Number of children: Not on file Years of education: Not on file Highest education level: Not on file Occupational History Not on file Social Needs Financial resource strain: Not on file Food insecurity: Worry: Not on file Inability: Not on file Transportation needs: Medical: Not on file Non-medical: Not on file Tobacco Use Smoking status: Former Smoker Types: Cigars Last attempt to quit: 09/05/1988 Years since quittin.5 Smokeless tobacco: Never Used Substance and Sexual Activity Alcohol use: Not Currently Comment: occasional Drug use: Never Sexual activity: Not Currently Lifestyle Physical activity: Days per week: Not on file Minutes per session: Not on file Stress: Not on file Relationships Social connections: Talks on phone: Not on file Gets together: Not on file Attends hinduism service: Not on file Active member of club or organization: Not on file Attends meetings of clubs or organizations: Not on file Relationship status: Not on file Intimate partner violence: Fear of current or ex partner: Not on file Emotionally abused: Not on file Physically abused: Not on file Forced sexual activity: Not on file Other Topics Concern Not on file Social History Narrative Not on file OBJECTIVE: Blood pressure 128/70, pulse 88, height 5' 8" (1.727 m), weight 250 lb 1.6 oz (113.4 kg).BP 128/70 | Pulse 88 | Ht 5' 8" (1.727 m) | Wt 250 lb 1.6 oz (113.4 kg) | BMI 38.03 kg/m General: no distress. Eyes: Conjunctiva pink Neck: no thyroid enlargement or nodules. Heart: regular rate and rhythm, no murmur. Lungs: Clear to auscultation. Abdomen: Bowel sounds present Left foot Diabetic foot exam: Visual exam: normal Sensory: filament testing diminished Pulse: no pulse could be palpated Right foot diabetic exam Visual exam: normal Sensory: Filament testing diminished Pulse: no pulse could be palpated Extremities: + +edema with blistering Psych: Alert and oriented. ASSESSMENT and PLAN: 1. Diabetes mellitus type 2 with nephrology, neurology Insulin adjusted Call me blood sugars in two weeks Labs today 2. Nephropathy Recheck today 3. Neuropathy stable 4. Edema Diuretic was recently changed per nephrology 5. Hyperlipidemia Continue statin 6. Hypertension Acceptable control Will call PMD for recent labs Patient Instructions NEW INJECTION SITE INCREASE LEVEMIR TO 56 UNITS CRISTIAN [facility] Section of Endocrinology 03/21/2019 13:56 2 :09 PM EDTdocumented in this encounter Plan of Treatment Date Type Specialty Care Team Description 09/19/2019 Office Visit Endocrinology Mary Carmen Tello FNP [address] [facility] [address] Name Type Priority Associated Diagnoses Date/Time COMPREHENSIVE METABOLIC Lab Routine DM (diabetes mellitus), 03/21/2019 1: 42 PM PANEL type 2, uncontrolled with EDT complications (HCC) MICROALBUMIN, RANDOM Lab Routine DM (diabetes mellitus), 03/21/2019 1:45 PM URINE W/ CREATININE type 2, uncontrolled with EDT complications (HCC) THYROID STIMULATING Lab Routine DM (diabetes mellitus), 03/21/2019 1:42 PM HORMONE type 2, uncontrolled with EDT complications (HCC) Name Type Priority Associated Diagnoses Order Schedule COMPREHENSIVE METABOLIC Lab Routine DM (diabetes mellitus), Expected: 03/21 PANEL type 2, uncontrolled (Approximate), with complications (HCC) Expires: 09/17/2019 MICROALBUMIN, RANDOM Lab Routine DM (diabetes mellitus), 1 Occurrences starting URINE W/ CREATININE type 2, uncontrolled 03/21/2019 until with complications (HCC) 09/17/2019 THYROID STIMULATING Lab Routine DM (diabetes mellitus), Expected: 2018 HORMONE type 2, uncontrolled (Approximate), with complications (HCC) Expires: 09/17/2019 Health Maintenance Due Date Last Done Comments Diabetic Eye Exam 1935 HEMOGLOBIN A1C 1935 MEDICARE ANNUAL WELLNESS 1935 VISIT URINE MICROALBUMIN 1935 DEPRESSION SCREENING 1946 HIV SCREENING 1949 ZOSTER IMMUNIZATION SERIES 1984 (1 of 2) FALL RISK ASSESSMENT 12/16/1999 PNEUMOCOCCAL 65+YRS (1 of 2 12/16/1999 - PCV13) INFLUENZA VACCINE (#1) 2019 FOOT EXAM 08/02/2019 08/02/2018, 08/02/2018, 08/02/2018, Additional history exists HPV IMMUNIZATION SERIES Aged Out No longer eligible based on patient's age to complete this topic MENINGOCOCCAL VACCINE IMM Aged Out No longer eligible based on patient's age to complete this topic documented as of this encounter Results Not on filedocumented in this encounter Visit Diagnoses Diagnosis DM (diabetes mellitus), type 2, uncontrolled with complications (HCC) - Primary Type II or unspecified type diabetes mellitus with unspecified complication, uncontrolled documented in this encounter Insurance Payer Benefit Plan / Subscriber ID Effective Dates Phone Address Type Group WELLCARE WELLCARE xxxxxxxxx Effective for Medicare TODAYS OPTIONS TODAYS OPTIONS all dates Advantage MEDICAID [facility] xxxxxxxx 2017-[place] t documented as of this encounter
--- OUTSIDE RECORDS SUMMARY | 2019-03-27 14:16 | XMS REPORT | Continuity of Care Document ---
:1935 External Reference #:[id number] Author Name Kia Dominguez PA (transmitted by agent of provider Quita Liang) Address [address], [address] [place] [address] Care Team Providers Name Role Phone Josselyn Jim MD - Care Team Information Aviation Survival Technician [phone] Nephrology Conrad Odom MD - Nephrology Care Team Information Aviation Survival Technician [phone] Amparo Hoffman MD - Internal Medicine Care Team Information Aviation Survival Technician [phone] Wiley Wilkerson MD - Endocrinology, Care Team Information Aviation Survival Technician [phone] Diabetes & Metabolism Nabil Hunt MD - Nephrology Care Team Information Aviation Survival Technician [phone] [facility] Nephrology Care Team Information Aviation Survival Technician [phone] Problems Active Problems Provider Date Edema Johny Merchant M.D., Onset: 11/01/2012 [facility]AC Malignant hypertensive heart disease Johny Merchant M.D., Onset: 2012 without congestive heart failure FAC Renal failure syndrome Johny Merchant M.D., Onset: 11/01/2012 [facility] Diabetes mellitus Johny Merchant M.D., Onset: 11/01/2012 [facility] Dizziness and giddiness Johny Merchant M.D., Onset: 03/06/2013 [facility] Arthralgia of the lower leg Johny Merchant M.D., Onset: 03/18/2014 [facility] First degree atrioventricular block Johny Merchant M.D., Onset: 2014 [facility] Hypertensive heart disease without Johny Merchant M.D., Onset: 2014 heart failure [facility] Dyspnea Johny Merchant M.D., Onset: 03/08/2016 [facility] Aortic valve disorder Johny Merchant M.D., Onset: 03/08/2016 [facility] Mitral valve disorder Johny Merchant M.D., Onset: 03/08/2016 [facility] Chronic pulmonary heart disease Johny Merchant M.D., Onset: 03/08/2016 [facility] Bradycardia, unspecified Johny Merchant M.D., Onset: 03/08/2016 [facility] Chronic renal failure Johny Merchant M.D., Onset: 03/30/2016 [facility] Cardiac pacemaker in situ Johny Merchant M.D., Onset: 04/12/2016 [facility] Type 2 diabetes mellitus Johny Merchant M.D., Onset: 05/12/2016 [facility] Chronic kidney disease stage 4 Johny Merchant M.D., Onset: 05/12/2016 [facility] Tachycardia Johny Merchant M.D., Onset: 08/16/2016 [facility] Essential hypertension Johny Merchant M.D., Onset: 08/16/2016 [facility] Hyperlipidemia Johny Merchant M.D., Onset: 08/16/2016 [facility] Hypothyroidism Amparo Hoffman MD Onset: 11/14/2016 Mixed hyperlipidemia Amparo Hoffman MD Onset: 11/14/2016 Chest pain Johny Merchant M.D., Onset: 03/16/2017 [facility] 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 Tinea pedis Amparo Hoffman MD Onset: 08/31/2017 Liver function tests abnormal Amparo Hoffman MD Onset: 11/03/2017 Chronic diastolic heart failure Jolynn Weems, MSN, Onset: 2017 ACCELERATOR SYSTEMS DIRECTOR Paroxysmal ventricular tachycardia Johny Merchant M.D., Onset: 2018 [facility] Heart failure, unspecified Johny Merchant M.D., Onset: 11/08/2018 [facility]AC 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., 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 [facility] pectoris Social History Type Date Description Comments [...] 02/21/2019 10Meq day, take an extra M., MNusrat., FACC Tablets ER 2 tablets in the afternoon on MWF only I50.9 Eliquis 1 tab by mouth [...] 1 tab sl every 5 25tabs I25.10 Jolynn Weems 10/26/2018 0.4mg Tablets min x3 chest pain TOMI Smalls, ACCELERATOR SYSTEMS DIRECTOR Sub Furosemide take 2 tablets by 120tabs I50.9 Weems, Jolynn 10/26/2018 40mg Tablets mouth twice a day TOMI Smalls, ACCELERATOR SYSTEMS DIRECTOR Pentips Pen Needle Use as Directed 100units Amparo Hoffman MD 10/17/2018 8mm Four Times A Day For Insulin Isosorbide take 1 tablet once 30tabs I50.32 Weems, Jolynn 07/26/2018 Mononitrate ER daily TOMI Smalls, CRISTIAN 30mg Tablets ER 24HR R07.9 Betamethasone apply to affected 90gm Amparo Hoffman, 07/09/2018 Dipropionate area of right MD 0.05% Cream lower extremity daily for 2 weeks on and 2 weeks off Magnesium Take one tablet 60tabs Gagnilsa, 04/17/2018 400mg Tablets two times a day MS Joseline, ACCELERATOR SYSTEMS DIRECTOR-C, CNM Levothyroxine Sodium 1 tab by mouth 90tabs E03.9 Amparo Hoffman, 06/05/2017 88mcg every day Tablets Levemir Flextouch 50 u subq at night 45ml LitKarolyn sadler, 02/13/2017 100Unit/ML M.D. Solution Pen-Inject Pen Holton 11/22" use as directed 1Box Amparo Hoffman, 01/24/2017 30G X 8 mm four times daily Misc for insulin Fluticasone Propionate spray 1-2 sprays 16gm Amparo Hoffman, 12/09/2016 in each nostril 50mcg/Act Suspension once every day Novolog Flexpen 14u sq before 45ml Amparo Hfofman, 12/06/2016 100Unit/ML breakfast 24u sq Solution Pen-Inject before lunch and dinner Atorvastatin Calcium take 1 tablet 90tabs Amparo Hoffman, 11/14/2016 40mg every evening Tablets Omeprazole 1 by mouth every 90caps Amparo Hoffman, 08/08/[address] day MD Collier Lancets use to test blood 200units Milton, 07/21/2016 Misc sugar 4x a day dx: MS Joseline, e11.9 ACCELERATOR SYSTEMS DIRECTOR-C, LALOM Onepat Verio Check FS four 300units Amparo Hoffman, 07/21/2016 Strips times a day and if MD needed Pantoprazole Sodium 1 by mouth every Unknown 40mg day Tablets DR Metoprolol Succinate ER 1 tablet daily Unknown 25mg Tablets ER 24HR Combigan 1 drop both eyes Unknown 0.2-0.5% Solution twice a day Latanoprost 1 drop both eyes Unknown 0.005% Solution at hs Levocetirizine 1 by mouth every 30tabs Unknown Dihydrochloride night 5mg Tablets Aspirin 1 po qd 30tabs Unknown 81mg Tablets DR Multiple Vitamins Daily po qd Unknown Tablets History Medications Klor-Con M10 take 4 tablets 100tabs Johny Merchant 02/15/2019 - twice daily. take Sundar Cole, [facility] Unknown 10Meq Tablets ER an extra 2 tablets -- when metolazone is used Potassium 4 tablets twice a 270tabs Johny Merchant 02/14/2019 - Chloride Roxann ER day. Extra 2 Sundar Cole, [facility] Unknown tablets in the 10Meq Tablets ER afternoon on MW (when metolazone is used) Thaior-Con M10 2 tablets tid, I50.32 Johny Merchant 01/31/2019 - take an extra Sundar Cole, [facility] 02/21/2019 10Meq Tablets ER tablet in the Am and afternoon when taking metolazone I50.9 Metolazone take one tablet by 30tabs I50.9 Jolynn Weems 01/17/2019 - 2.5mg mouth 1/2 hour TOMI Smalls, 01/31/2019 Tablets prior to ACCELERATOR SYSTEMS DIRECTOR furosemide once daily as directed Klor-Con M10 2 by mouth every 90tabs I50.32 Johny Merchant 11/09/2018 - day Sundar Cole, [facility] 11/09/2018 10Meq Tablets ER Klor-Con 10 take 3tabs 360tabs I50.32 Johny Merchant 11/09/2018 - 10Meq am,3tabs Sundar Cole, [facility] 01/31/2019 Tablets ER afternoon,2tabs pm by mouth I50.9 Furosemide 3 tabs in am I50.9 Jolynn Weems 10/09/2018 - 40mg Tablets Serina, MSN, ACCELERATOR SYSTEMS DIRECTOR 10/26/2018 Immunizations CPT Code Status Date Vaccine Lot # [id number] Given 03/27/2018 Influenza High Dose [id number] Given 03/24/2017 Influenza High Dose [id number] Given 05/16/2016 Influenza Vaccine (Fluzone) Age 3 And Older [id number] Given 06/25/2001 Pneumovax Injection Vital Signs Date [...] 243 mg/dL High 74-106 1 Panel [address] [place], [place] [id number] [phone] BUN 48 mg/dL High 7-18 Creatinine 2.6 [...] Magnesium 2.1 mg/dL Normal 1.8-2.4 finding [address] [place], [place] [address] [phone] Basic Metabolic 02/14/2019 [facility] Glucose 76 mg/dL Normal 74-106 3 Panel [address] [place], [place] [address] [phone] BUN 44 mg/dL High 7-18 Creatinine 2.4 mg/dL High 0.6-1.3 Glom Filtration Rate, Estimate 28 mL/min >60 If 33 mL/min >60 4 BUN/Creat 18.3 ratio Sodium 140 mmol/L Normal 136-145 Potassium 3.2 mmol/L Low 3.5-5.1 Chloride 98 mmol/L Normal 98-107 Carbon Dioxide 33 mmol/L High 21-32 Anion Gap 9 mEq/L Normal 8-16 Calcium 9.3 mg/dL Normal 8.5-10.1 Order 01/31/2019 [facility] - Cardiology Dept. Echocardiogram <pending> JAMES [place] [id number] [phone] EKG <pending> Basic Metabolic Panel 01/28/2019 [facility] Glucose 328 mg/dL High 74-[address] JAMES [place] [id number] [phone] BUN 58 mg/dL High 7-18 Creatinine 2.9 mg/dL High 0.6-1.3 Glom Filtration Rate, Estimate 22 mL/min >60 If 27 mL/min >60 6 BUN/Creat 20.0 ratio Sodium 134 mmol/L Low 136-145 Potassium 3.6 mmol/L Normal 3.5-5.1 Chloride 92 mmol/L Low 98-107 Carbon Dioxide 33 mmol/L High 21-32 Anion Gap 9 mEq/L Normal 8-16 Calcium 9.2 mg/dL Normal 8.5-10.1 Laboratory test 01/28/2019 [facility] Thyroid 0.89 Normal 0.30-4.[address] Stim uIU/[place] [address] Hormone [phone] Free T4 1.35 ng/dL Normal 0.76-1.46 CBC W/Automated 01/17/2019 [facility] White Blood 7.7 K/uL Normal 3.4-10.5 [address] [place] [address] [phone] Red Blood Count 4.50 M/uL Normal 4.20-5.80 [...] 33.0-73.0 Lymph % 42.7 % High 20.0-42.0 Ceiba % 12.9 % High 0.0-10.0 Eo% 4.0 % Normal 0.0-6.6 Bas% 0.5 % Normal 0.0-1.1 Immature Grans 0.4 % Normal 0.0-5.0 NRBC % 0.0 /100WBC < 10/ 100 WBC Neut# 3.02 K/uL Normal 1.8-7.0 Lymph # 3.27 K/uL Normal 1.0-4.0 Ceiba # 0.99 K/uL High 0.0-0.8 Eos # 0.31 K/uL Normal 0.0-0.5 Baso # 0.04 K/uL Normal 0.0-0.1 Immature Grans Absolute 0.03 K/uL NRBC # 0.00 K/uL Glycohemoglobin 01/17/2019 [facility] Glycohemoglobin 9.5 % High 4.2-6.[address] (A1c) [place], [place] [id number] [phone] eAG 226 mg/dL Laboratory test 01/17/2019 [facility] PTH,Intact 68 pg/mL High 15-65 [address] [place], [place] [address] [phone] Vitamin D,25-Hydroxy 42.4 ng/mL 30.0-100.0 10 Phosphorous 3.5 mg/dL Normal 2.5-4.0 Protein/Creatinine 01/17/2019 [facility] Creatinine,Urine 10.0 Not Ratio,Urine [address] mg/dL Estab. [place], [place] [id number] [phone] Protein,Total,Urine 8.9 mg/dL Not Estab. Protein/Creatinine Ratio 890 MG/GCRE High 0-200 11 Comprehensive Metabolic 01/17/2019 [facility] Glucose 249 mg/dL High 74-106 Panel [address] [place], [place] [address] [phone] BUN 31 mg/dL High 7-18 Creatinine 2.3 mg/dL High 0.6-1.3 Glom Filtration Rate, Estimate 29 mL/min >60 If 35 mL/min >60 12 BUN/Creat 13.4 ratio Sodium 138 mmol/L Normal [...] 12-78 Alkaline Phosphatase 147 U/L High 45-117 Basic Metabolic Panel 01/07/2019 [facility] Glucose 446 mg/dL High 74-106 13 [address] [place], [place] [address] [phone] BUN 53 mg/dL High 7-18 Creatinine 3.1 mg/dL High 0.6-1.3 Glom Filtration Rate, Estimate 21 mL/min >60 If 25 mL/min >60 14 BUN/Creat 17.0 ratio Sodium 134 mmol/L Low 136-145 Potassium 3.6 mmol/L Normal 3.5-5.1 Chloride 96 mmol/L Low 98-107 Carbon Dioxide 28 mmol/L Normal 21-32 Anion Gap 10 mEq/L Normal 8-16 Calcium 8.9 mg/dL Normal 8.5-10.1 Basic Metabolic Panel 10/19/2018 [facility] Glucose 261 mg/dL High 74-106 15 [address] [place], [place] [address] [phone] BUN 60 mg/dL High 7-18 Creatinine 2.6 mg/dL High 0.6-1.3 Glom Filtration Rate, Estimate 25 mL/min >60 If 30 mL/min >60 16 BUN/Creat 23.0 ratio Sodium 136 mmol/L Normal 136-145 Potassium 3.5 mmol/L Normal 3.5-5.1 Chloride 94 mmol/L Low 98-107 Carbon Dioxide 36 mmol/L High 21-32 Anion Gap 6 mEq/L Low 8-16 Calcium 9.3 mg/dL Normal 8.5-10.1 Basic Metabolic Panel 09/25/2018 [facility] Glucose 263 mg/dL High 74-106 17 [address] [place], [place] [address] [phone] BUN 59 mg/dL High 7-18 Creatinine 3.0 mg/dL High 0.6-1.3 Glom Filtration Rate, Estimate 21 mL/min >60 If 26 mL/min >60 18 BUN/Creat 19.6 ratio Sodium 136 mmol/L Normal 136-145 Potassium 3.5 mmol/L 3.5-5.1 Chloride 98 mmol/L Normal 98-107 Carbon Dioxide 31 mmol/L Normal 21-32 Anion Gap 7 mEq/L Low 8-16 Calcium 8.5 mg/dL Normal 8.5-10.1 Laboratory test 09/25/2018 [facility] Phosphorous 3.5 mg/dL Normal 2.5-4.0 finding [address] [place], [place] [address] [phone] PTH,Intact 80 pg/mL High 15-65 19 Protein/Creatinine 09/25/2018 [facility] Creatinine,Urine 47.7 Not Ratio,Urine [address] mg/dL [facility] [place], [place] [address] [phone] Protein,Total,Urine 23.2 mg/dL Not Estab. Protein/Creatinine Ratio 486 MG/GCRE High 0-200 20 Ua RFX Micro & Culture 09/25/2018 [facility] Urine Color YELLOW Yellow II [address] [place] [address] [phone] Urine Clarity CLEAR Clear Urine Glucose - Dipstick 500 mg/dL High Negative Urine Bilirubin - Dipstick NEGATIVE Negative Urine Ketone NEGATIVE mg/dL Negative Urine Specific Barron 1.010 Normal 1.010-1.030 Urine Blood NEGATIVE Negative Urine PH 7.0 Normal 6.5-7.5 Urine Protein - Dipstick TRACE mg/dL Negative Urine Urobilinogen - Dipstick 0.2 E.U./dL Normal 0.2-1.0 Urine Nitrite - Dipstick NEGATIVE Negative Urine Leuk Esterase NEGATIVE Negative Source: URINE, CLEAN CAT <SEE NOTE> 21 Laboratory test 09/25/2018 [facility] Vitamin 39.8 30.0-100.0 [address] D,25-Hydroxy ng/[place] [address] [phone] Glycohemoglobin 09/25/2018 [facility] Glycohemoglobin 9.1 % High 4.2-6.3 [address] (A1c) [place] [address] [phone] eAG 214 mg/dL 1 I48.0, I42.9 2 [...] at www.kdoqi.org. 7 N18.4, E08.21, N18.4 8 Elevated levels of HbA1c suggest the need for more aggressive treatment of glycemia. The [place] Diabetes Association recommends that a primary goal of therapy should be a HbA1c of <7% and that physicians should re-evaluate the treatment regimen in patients with HbA1c values consistently >8%. 9 Performed at: [facility] [id number] Pump Rebuilder: Tanika Arndt MD, Phone: [phone] 10 Vitamin D deficiency has been defined by the [place] [employer] and an Endocrine Society practice guideline as a level of serum 25-OH vitamin D less than 20 ng/mL (1,2). The Endocrine Society went on to further define vitamin D insufficiency as a level between 21 and 29 ng/mL (2). 1. IOM ([place] [employer]). 2010. Dietary reference intakes for calcium and D. [place]: The National Academies Press. 2. Amalia MF, Albino NC, Andrea DELGADILLO, et al. Evaluation, treatment, and prevention of vitamin D deficiency: an Endocrine Society clinical practice guideline. JCEM. 2010; 96(7):1911-30. Performed at: [facility] [id number] Pump Rebuilder: Tanika Arndt MD, Phone: [phone] INFCE Result Units: mg/g creat Performed at: [facility] [id number] Pump Rebuilder: Tanika Arndt MD, Phone: [phone] 12 Note: Persistent reduction for 3 months or more in an eGFR <60 mL/min/1.73 m2 defines CKD. Patients with eGFR values >/=60 mL/min/1.73 m2 may also have CKD if evidence of persistent proteinuria is present. The original MDRD equation for estimated GFR is not valid for patients less than 18 years of age. Additional information may be found at www.kdoqi.org. 13 Z95.2 14 Note: Persistent reduction for [...] found at www.kdoqi.org. 17 E08.21 N18.4 18 Note: Persistent reduction for 3 months or more in an eGFR <60 mL/min/1.73 m2 defines CKD. Patients with eGFR values >/=60 mL/min/1.73 m2 may also have CKD if evidence of persistent proteinuria is present. The original MDRD equation for estimated GFR is not valid for patients less than 18 years of age. Additional information may be found at www.kdoqi.org. 19 Performed at: [facility] [address] [id number] Pump Rebuilder: Tanika Arndt MD, Phone: [phone] INFCE Result Units: mg/g creat Performed at: [facility] [address] [id number] Pump Rebuilder: Tanika Arndt MD, Phone: [phone] 21 URINE, CLEAN CATCH 22 Vitamin D deficiency has been defined by the [place] of [employer] and an Endocrine Society practice guideline as a level of serum 25-OH vitamin D less than 20 ng/mL (1,2). The Endocrine Society went on to further define vitamin D insufficiency as a level between 21 and 29 ng/mL (2). 1. IOM ([place] [employer]). 2010. Dietary reference intakes for calcium and D. [place]: The National Academies Press. 2. Amalia MF, Alb[place], Andrea DELGADILLO, et al. Evaluation, treatment, and prevention of vitamin D deficiency: an Endocrine Society clinical practice guideline. JCEM. 2010; 96(7):1911-30. Performed at: [facility] [address] [id number] Pump Rebuilder: Tanika Arndt MD, Phone: [phone] 23 Elevated levels of HbA1c suggest the need for more aggressive treatment of glycemia. The [place] Diabetes Association recommends that a primary goal of therapy should be a HbA1c of <7% and that physicians should re-evaluate the treatment regimen in patients with HbA1c values consistently >8%. Procedures Date Code Description Status 02/21/2019 81955 EKG-Tracing And Report Completed 01/31/2019 96713 Echocardiogram Complete Completed 01/31/2019 67894 Pacemaker Interrogaton Eval In Person Completed 01/31/2019 87895 EKG Interpretation And Report Only Completed 01/31/2019 89071 EKG-Tracing And Report Completed 01/17/2019 66924 EKG-Tracing And Report Completed 12/10/2018 60601 Debridement Nails Any Method 6 Or More Completed 12/10/2018 64930 Pare Hyperkeratotic Lesion, Single Completed 10/26/2018 80127 Dual Pacemaker Programming Anayisis, Review And Report Completed 10/09/2018 55007 Dual Pacemaker Programming Anayisis, Review And Report Completed 09/04/2018 89678 Debridement Nails Any Method 1-5 Completed 09/04/2018 80534 Trim Nondystrophic Nails Completed 09/04/2018 91056 Pare Hyperkeratotic Lesion, Single Completed 08/30/2018 25903 Bronchospasm Provocation Evaluation Multi Spirometric Completed Determinati 08/30/2018 37806 Spirometry Completed 02/07/2018 824293141 Diabetic Foot Exam Completed 07/10/2015 10353319 Colonoscopy Completed Medical Devices Description No Information Available Encounters Type Date Location Provider Dx Diagnosis Office Visit 02/21/2019 Cardiology Office Kia Dominguez I48.1 Persistent atrial 1:20p B., PA fibrillation I42.9 Cardiomyopathy, unspecified Z95.0 Presence of cardiac pacemaker I50.9 Heart failure, unspecified N18.4 Chronic kidney disease, stage 4 (severe) Z95.2 Presence of prosthetic heart valve I25.10 Athscl heart disease of [place] coronary artery w/o ang pctrs Office Visit 01/31/2019 10:45a Cardiology Office Angelica I48.0 Paroxysmal atrial Marlyss B., PA fibrillation I50.9 Heart failure, unspecified I42.9 Cardiomyopathy, unspecified I47.2 Ventricular tachycardia Z95.2 Presence of prosthetic heart valve I35.0 Nonrheumatic aortic (valve) stenosis I25.10 Athscl heart disease of [place] coronary artery w/o ang pctrs Z95.0 Presence of cardiac pacemaker Office Visit 01/22/2019 8:40a Primary Care Amapro Hoffman, I35.0 Nonrheumatic aortic Office MD (valve) stenosis N18.4 Chronic kidney disease, stage 4 (severe) E08.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 R60.0 Localized edema I50.9 Heart failure, unspecified Office Visit 01/17/2019 10:20a Cardiology Jolynn Weems I50.9 Heart failure , Office TOMI Smalls, unspecified ACCELERATOR SYSTEMS DIRECTOR I35.0 Nonrheumatic aortic (valve) stenosis I25.10 Athscl heart disease of [place] coronary artery w/o ang pctrs I47.2 Ventricular tachycardia N18.4 Chronic kidney disease, stage 4 (severe) Z95.0 Presence of cardiac pacemaker Office Visit 12/10/2018 8:45a Podiatry Office Sharan I70.203 Unsp athscl [place] Gualberto, DPM arteries of extremities, bilateral legs E11.9 Type 2 diabetes mellitus without complications B35.1 Tinea unguium L84 Corns and callosities M79.672 Pain in left foot M79.671 Pain in right foot Office Visit 11/08/2018 2:20p Cardiology Johny Merchant I50.9 Heart failure, Office Sundar Cole, [facility] unspecified I35.0 Nonrheumatic aortic (valve) stenosis I25.10 Athscl heart disease of [place] coronary artery w/o ang pctrs I47.2 Ventricular tachycardia N18.4 Chronic kidney disease, stage 4 (severe) R42 Dizziness and giddiness Z95.0 Presence of cardiac pacemaker Office Visit 10/26/2018 1:20p Cardiology Jolynn Weems I50.9 Heart failure , Office TOMI Smalls, unspecified ACCELERATOR SYSTEMS DIRECTOR I35.0 Nonrheumatic aortic (valve) stenosis I25.10 Athscl heart disease of [place] coronary artery w/o ang pctrs I47.2 Ventricular tachycardia Z95.0 Presence of cardiac pacemaker I48.4 Atypical atrial flutter N18.4 Chronic kidney disease, stage 4 (severe) Office Visit 10/09/2018 Cardiology Jolynn Weems I35.0 Nonrheumatic 10:00a Office TOMI Smalls, aortic (valve) ACCELERATOR SYSTEMS DIRECTOR stenosis I50.9 Heart failure, unspecified I25.10 Athscl heart disease of [place] coronary artery w/o ang pctrs I47.2 Ventricular tachycardia Z95.0 Presence of cardiac pacemaker I48.4 Atypical atrial flutter N18.4 Chronic kidney disease, stage 4 (severe) Office Visit 10/02/2018 9:30a Primary Care Milton, E08.21 Diabetes due to Office MS Joseline, underlying ACCELERATOR SYSTEMS DIRECTOR-C, CNM condition w diabetic nephropathy I35.0 Nonrheumatic aortic (valve) stenosis I50.32 Chronic diastolic (congestive) heart failure N18.4 Chronic kidney disease, stage 4 (severe) B35.1 Tinea unguium R60.0 Localized edema Assessments Date Code Description Provider 02/21/2019 I48.1 Persistent atrial fibrillation Fanta Dominguezs Izabella., PA 02/21/2019 I42.9 Cardiomyopathy, unspecified Sivan Dominguezlyss B., PA 02/21/2019 Z95.0 Presence of cardiac pacemaker Fanta Dominguezs B., PA 02/21/2019 I50.9 Heart failure, unspecified Sivan Dominguezlyss B., PA 02/21/2019 N18.4 Chronic kidney disease, stage 4 Angelica, Marlyss B., PA (severe) 02/21/2019 Z95.2 Presence of prosthetic heart valve Kia Dominguez., PA 02/21/2019 I25.10 Atherosclerotic heart disease of Kia Dominguez, PA [place] coronary artery with 01/31/2019 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 Johny Merchant M.D., disorders [facility] 01/31/2019 I36.1 Nonrheumatic tricuspid (valve) Johny Merchant M.D., insufficiency [facility] 01/31/2019 Z95.2 Presence of prosthetic heart valve Johny Merchant M.D., [facility] 01/31/2019 I47.2 Ventricular tachycardia Johny Merchant M.D., [facility] 01/31/2019 I48.0 Paroxysmal atrial fibrillation Fanta Dominguezs B., PA 01/31/2019 I50.9 Heart failure, unspecified Sivan Dominguezlyss B., PA 01/31/2019 I47.2 Ventricular tachycardia Fanta Dominguezs B., PA 01/31/2019 I42.9 Cardiomyopathy, unspecified AngelicaFanta ponces B., PA 01/31/2019 Z95.0 Presence of cardiac pacemaker Johny Merchant M.D., [facility] 01/31/2019 I47.2 Ventricular tachycardia AngelicaFanta ponces B., PA 01/31/2019 Z95.2 Presence of prosthetic heart valve AngelicaFantas B., PA 01/31/2019 I35.0 Nonrheumatic aortic (valve) stenosis AngelicaSivan poncelyss B., PA 01/31/2019 I25.10 Atherosclerotic heart disease of AngelicaFanta ponces B., PA [place] coronary artery with 01/31/2019 Z95.0 Presence of cardiac pacemaker AngelicaFantas B., PA 01/31/2019 Z95.0 Presence of cardiac pacemaker AngelicaFantas B., PA 01/22/2019 I35.0 Nonrheumatic aortic (valve) stenosis Amparo Hoffman MD 01/22/2019 N18.4 Chronic kidney disease, stage 4 Amparo Hoffman MD (severe) 01/22/2019 E08.21 Diabetes mellitus due to underlying Amparo Hoffman MD condition with diabetic 01/22/2019 R60.0 Localized edema Amparo Hoffman MD 01/22/2019 I50.9 Heart failure, unspecified Amparo Hoffman MD 01/17/2019 I50.9 Heart failure, unspecified Jolynn Weems, TOMI, [facility] 01/17/2019 I35.0 Nonrheumatic aortic (valve) stenosis Jolynn Weems , TOMI, [facility] 01/17/2019 I25.10 Atherosclerotic heart disease of Jolynn Weems, TOMI, [place] coronary artery with [facility] 01/17/2019 I47.2 Ventricular tachycardia Jolynn Weems, TOMI, [facility] 01/17/2019 N18.4 Chronic kidney disease, stage 4 Jolynn Weems, TOMI , (severe) [facility] 01/17/2019 Z95.0 Presence of cardiac pacemaker Jolynn Weems, TOMI, [facility] 12/10/2018 I70.203 Unspecified atherosclerosis of [place] Gualberto Tsang DP arteries of extremitie 12/10/2018 E11.9 Type 2 diabetes mellitus without Gualberto Tsang, SARMAD complications 12/10/2018 B35.1 Tinea unguium Gualberto Tsang, [facility] 12/10/2018 L84 Corns and callosities Gualberto Tsang, DPM 12/10/2018 M79.672 Pain in left foot Gualberto Tsang, DP 12/10/2018 M79.671 Pain in right foot Gualberto Tsang, M 11/08/2018 I50.9 Heart failure, unspecified Johny Merchant M.D., [facility] 11/08/2018 I35.0 Nonrheumatic aortic (valve) stenosis Johny Merchant M.D., [facility] 11/08/2018 I25.10 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. , [place] coronary artery with [facility] 11/08/2018 I47.2 Ventricular tachycardia Johny Merchant M.D., [facility] 11/08/2018 N18.4 Chronic kidney disease, stage 4 Johny Merchant M.D., (severe) [facility] 11/08/2018 R42 Dizziness and giddiness Johny Merchant M.D., [facility] 11/08/2018 Z95.0 Presence of cardiac pacemaker Johny Merchant M.D., [facility] 10/26/2018 I50.9 Heart failure, unspecified Jolynn Weems MSN, [facility] 10/26/2018 I35.0 Nonrheumatic aortic (valve) stenosis Jolynn Weems , TOMI, [facility] 10/26/2018 I25.10 Atherosclerotic heart disease of Jolynn Weems MSN, [place] coronary artery with [facility] 10/26/2018 I47.2 Ventricular tachycardia Jolynn Weems MSN, [facility] 10/26/2018 Z95.0 Presence of cardiac pacemaker Jolynn Weems MSN, [facility] 10/26/2018 I48.4 Atypical atrial flutter Jolynn Weems MSN, [facility] 10/26/2018 N18.4 Chronic kidney disease, stage 4 Jolynn Weems, TOMI , (severe) [facility] 10/09/2018 I47.2 Ventricular tachycardia Johny Merchant M.D., [facility] 10/09/2018 I47.2 Ventricular tachycardia Kia Dominguez, PA 10/09/2018 I35.0 Nonrheumatic aortic (valve) stenosis Jolynn Weems , TOMI, [facility] 10/09/2018 Z95.0 Presence of cardiac pacemaker Johny Merchant M.D., [facility] 10/09/2018 I50.9 Heart failure, unspecified Jolynn Weems, TOMI, [facility] 10/09/2018 I44.0 Atrioventricular block, first degree Johny Merchant M.D., [facility] 10/09/2018 I25.10 Atherosclerotic heart disease of Jolynn Weems MSN, [place] coronary artery with [facility] 10/09/2018 Z95.0 Presence of cardiac pacemaker Kia Dominguez, PA 10/09/2018 I47.2 Ventricular tachycardia Jolynn Weems, TOMI, [facility] 10/09/2018 I44.0 Atrioventricular block, first degree Kai Dominguez, PA 10/09/2018 Z95.0 Presence of cardiac pacemaker Jolynn Weems, TOMI, [facility] 10/09/2018 I48.4 Atypical atrial flutter Jolynn Weems MSN, [facility] 10/09/2018 N18.4 Chronic kidney disease, stage 4 Jolynn Weems MSN , (severe) [facility] 10/02/2018 E08.21 Diabetes mellitus due to underlying Joseline Rose MS , SELINC, condition with diabetic [facility] 10/02/2018 I35.0 Nonrheumatic aortic (valve) stenosis Joseline Rose MS , ROMANA, CN 10/02/2018 I50.32 Chronic diastolic (congestive) heart Joseline Rose MS , SELINC, failure [facility] 10/02/2018 N18.4 Chronic kidney disease, stage 4 Joseline Rose, , [employer]ATOR SYSTEM[employer] DIRECTOR- C, (severe) CN 10/02/2018 B35.1 Tinea unguium Joseline Rose, , [employer]ELERATOR SYSTEMS DIRECTOR-C, CN 10/02/2018 R60.0 Localized edema Joseline Rose, , [employer]ATOR SYSTEM[employer] DIRECTOR-C, CNM 09/26/2018 E08.21 Diabetes mellitus due to underlying Amparo Hoffman MD condition with diabetic 09/26/2018 I35.0 Nonrheumatic aortic (valve) stenosis Amparo Hoffman MD 09/26/2018 I50.32 Chronic diastolic (congestive) heart Amparo Hoffman MD failure 09/26/2018 N18.4 Chronic kidney disease, stage 4 Amparo Hoffman MD (severe) 09/04/2018 I70.203 Unspecified atherosclerosis of [place] Gualberto Tsang DPM arteries of extremitie 09/04/2018 E11.9 Type 2 diabetes mellitus without Gualberto Tsang DPM complications 09/04/2018 B35.1 Tinea unglennoxum Gualberto Tsang DPM 09/04/2018 L84 Corns and callosities Gualberto Tsang DPM 09/04/2018 M20.22 Hallux rigidus, left foot Gualberto Tsang DPM 09/04/2018 M20.21 Hallux rigidus, right foot Gualberto Tsang DPM 08/30/2018 I35.0 Nonrheumatic aortic (valve) stenosis Tod Tapia MD Plan of Treatment Future Appointment(s):04/12/2019 9:00 am - Kia Dominguez PA at Cardiology Serqwk5303/26/2019 9:15 am - Kia Dominguez PA at Cardiology Office Functional Status Functional Condition Comment Date Status Independent with all ADL's Active Oxygen 2 L 24/hr Active Standard cane is used to ambulate Active Mental Status Description No Information Available Referrals Refer to Reason for Referral Status Appt Date [facility] Ne[facility]rology Patient used to see group before. Est care Created CKD stage 4. DM retinopathy, neuropathy and nephropathy Aortic stenosis s/p TAVR CHF on diuretics, hx of CAD Baseline Cr 2.3-2.5 02/07/19 faxed notes.... LE 02/19/19 refaxed notes... LE [address] [facility] [address] [place] [address] [phone] Deplee ann, Samy Rodriguez M.D. Referral for TAVR. Closed 11/27/[address] [place] [address] [place], [place] [id number] [phone]
--- OUTSIDE RECORDS SUMMARY | 2019-03-27 14:16 | XMS REPORT | Continuity of Care Document ---
:1935 External Reference #:[id number] Author Name Kia Dominguez PA (transmitted by agent of provider Quita Liang) Address [address] [place] [address] Care Team Providers Name Role Phone Josselyn Jim MD - Care Team Information Hand Gluer [employer] Slicer [phone] Nephrology Conrad Odom MD - Nephrology Care Team Information [employer] Gluer And Slicer [phone] Amparo Hoffman MD - Internal Medicine Care Team Information Hand Gluer And Slicer [phone] Wiley Wilkerson MD - Endocrinology, Care Team Information [employer] Gl[employer] Diabetes & Metabolism Nabil Hunt MD - Nephrology Care Team Information Hand Gluer And Slicer [phone] [facility] Nephrology Care Team Information Hand Gluer And Slicer [phone] Problems Active Problems Provider Date Edema Johny [...] atrioventricular block Johny Merchant M.D., Onset: 2014 [facility] Hypertensive heart disease without Johny Merchant M.D., Onset: 2014 heart failure [facility] Dyspnea Johny Merchant M.D., Onset: 03/08/2016 [facility] Aortic valve disorder Johny Merchant M.D., Onset: 03/08/2016 [facility] Mitral valve disorder Johny Merchant M.D., Onset: 03/08/2016 [facility] Chronic pulmonary heart disease Johny Merchant M.D., Onset: 03/08/2016 [facility] Bradycardia, unspecified Johny Merchant M.D., Onset: 03/08/2016 [facility] Chronic renal failure Johny Merchant M.D., Onset: 03/30/2016 [facility] Cardiac pacemaker in situ Johny Merchant M.D., Onset: 04/12/2016 [facility] Type 2 diabetes mellitus Johny Merchant M.D., Onset: 05/12/2016 [facility] Chronic kidney disease stage 4 Johny Merchant M.D., Onset: 05/12/2016 [facility] Tachycardia Johny Merchant M.D., Onset: 08/16/2016 [facility] Essential hypertension Johny Merchant M.D., Onset: 08/16/2016 [facility] Hyperlipidemia Johny Merchant M.D., Onset: 08/16/2016 [facility] Hypothyroidism Amparo Hoffman MD Onset: 11/14/2016 Mixed hyperlipidemia Amparo Hoffman MD Onset: 11/14/2016 Chest pain Johny Merchant M.D., Onset: 03/16/2017 [facility] 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 Tinea pedis Amparo Hoffman MD Onset: 08/31/2017 Liver function tests abnormal Amparo Hoffman MD Onset: 11/03/2017 Chronic diastolic heart failure Jolynn Weems MSN, Onset: 2017 [employer] Paroxysmal ventricular tachycardia Johny Merchant M.D., Onset: 2018 [facility] Heart failure, unspecified Johny Merchant M.D., Onset: 11/08/2018 [facility] 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., 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 Social [...] Medications Active Medications SIG Qnty Indications Ordering Date Provider Amiodarone HCL 1 by mouth every 90tabs I48.1 Johny Merchant 02/21/2019 200mg day (start 03/03/19) Sundar Cole, FACC Tablets Eliquis 1 tab by mouth 60tabs I48.1 Johny Merchant 01/31/2019 2.5mg Tablets twice daily Sundar Cole, FACC Metolazone take 1 tab 30 I50.9 Johny Merchant 01/31/2019 2.5mg minutes before Sundar Cole, FACC Tablets furosemide dose MWF Klor-Con M10 2 tablets tid, take I50.32 Johny Merchant 01/31/2019 10Meq an extra tablet in Sundar Cole, FACC Tablets ER the Am and afternoon when taking metolazone I50.9 Custom Molded Diabetes custom molded diabetes 1Pair B35.1 Amparo Hoffman MD 01/22/2019 Shoes shoes with inserts use daily E08.21 L84 Nitrostat 1 tab sl every 5 25tabs I25.10 Jolynn Weems 10/26/2018 0.4mg Tablets min x3 chest pain TOMI Smalls, [employer] Sub Furosemide take 2 tablets by 120tabs I50.9 Weems, Jolynn 10/26/2018 40mg Tablets mouth twice a day TOMI Smalls, CRISTIAN Pentips Pen Needle Use as Directed 100units [...] weeks off Magnesium Take one tablet 60tabs Milton, 04/17/2018 400mg Tablets two times a day MS Joseline, [employer]ER-C, CNM Levothyroxine Sodium 1 tab by mouth 90tabs E03.9 Amparo Hoffman, 06/05/2017 88mcg every day Tablets Levemir Flextouch 50 u subq at night 45ml LitKarolyn sadler, 02/13/2017 100Unit/ML M.D. Solution Pen-Inject Pen [place] 11/22" use as directed 1Box Amparo Hoffman, 01/24/2017 30G X 8 mm four times daily Misc for insulin Fluticasone Propionate spray 1-2 sprays 16gm Amparo Hoffman, 12/09/2016 in each nostril 50mcg/Act Suspension once every day Novolog Flexpen 14u sq before 45ml Ampaor Hoffman, 12/06/2016 100Unit/ML breakfast 24u sq Solution Pen-Inject before lunch and dinner Atorvastatin Calcium take 1 tablet 90tabs Amparo Hoffman, 11/14/2016 40mg every evening Tablets Omeprazole 1 by mouth every 90caps Amparo Hoffman, 08/08/[address] day MD Collier Lancets use to test blood 200units Milton, 07/21/2016 Misc sugar 4x a day dx: MS Joseline, e11.9 [employer]-C, CNM Onetoconstanza Verio Check FS four 300units Amparo Hoffman, [...] 02/15/2019 - twice daily. take Sundar Cole, [facility] Unknown 10Meq Tablets ER an extra 2 tablets -- when metolazone is used Potassium Chloride 4 tablets twice a 270tabs Johny Merchant 02/14/2019 - Roxann ER day. Extra 2 Sundar Cole, [facility] Unknown 10Meq tablets in the Tablets ER afternoon on MW (when metolazone is used) Metolazone take one tablet by 30tabs I50.9 Jolynn Weems 01/17/2019 - 2.5mg mouth 1/2 hour TOMI Smalls, 01/31/2019 Tablets prior to [employer] furosemide once daily as directed Klor-Con M10 2 by mouth every 90tabs I50.32 Johny Merchant 11/09/2018 - day Sundar Cole, [facility] 11/09/2018 10Meq Tablets ER Klor-Con 10 take 3tabs 360tabs I50.32 Johny Merchant 11/09/2018 - 10Meq am,3tabs Sundar Cole, [facility] 01/31/2019 Tablets ER afternoon,2tabs pm by mouth I50.9 Furosemide 3 tabs in am I50.9 Weems, Jolynn 10/09/2018 - 40mg Tablets TOMI Smalls, [employer] 10/26/2018 Immunizations CPT Code Status Date Vaccine Lot # [id number] Given 03/27/2018 Influenza High Dose [id number] Given 03/24/2017 Influenza High Dose [id number] Given 05/16/2016 Influenza Vaccine (Fluzone) Age 3 And Older [id number] Given 06/25/2001 Pneumovax Injection Vital Signs Date [...] 243 mg/dL High 74-106 1 Panel [address] [place], [place] [id number] [phone] BUN 48 mg/dL High 7-18 Creatinine 2.6 [...] Magnesium 2.1 mg/dL Normal 1.8-2.4 finding [address] [place], [place] [id number] [phone] Basic Metabolic 02/14/2019 [facility] Glucose 76 mg/dL Normal 74-106 3 Panel [address] [place] [address] [phone] BUN 44 mg/dL High 7-18 Creatinine 2.4 mg/dL High 0.6-1.3 Glom Filtration Rate, Estimate 28 mL/min >60 If 33 mL/min >60 4 BUN/Creat 18.3 ratio Sodium 140 mmol/L Normal 136-145 Potassium 3.2 mmol/L Low 3.5-5.1 Chloride 98 mmol/L Normal 98-107 Carbon Dioxide 33 mmol/L High 21-32 Anion Gap 9 mEq/L Normal 8-16 Calcium 9.3 mg/dL Normal 8.5-10.1 Order 01/31/2019 [facility] - Cardiology Dept. Echocardiogram <pending> JAMES Cobb [id number] [phone] EKG <pending> Basic Metabolic Panel 01/28/2019 [facility] Glucose 328 mg/dL High 74-[address] JAMES Cobb [id number] [phone] BUN 58 mg/dL High 7-18 Creatinine 2.9 mg/dL High 0.6-1.3 Glom Filtration Rate, Estimate 22 mL/min >60 If 27 mL/min >60 6 BUN/Creat 20.0 ratio Sodium 134 mmol/L Low 136-145 Potassium 3.6 mmol/L Normal 3.5-5.1 Chloride 92 mmol/L Low 98-107 Carbon Dioxide 33 mmol/L High 21-32 Anion Gap 9 mEq/L Normal 8-16 Calcium 9.2 mg/dL Normal 8.5-10.1 Laboratory test 01/28/2019 [facility] Thyroid 0.89 Normal 0.30-4.[address] Stim uIU/mL [place] [address] Hormone [phone] Free T4 1.35 ng/dL Normal 0.76-1.46 CBC W/Automated 01/17/2019 [facility] White Blood 7.7 K/uL Normal 3.4-10.[address] Count [place] [address] [phone] Red Blood Count 4.50 M/uL Normal 4.20-5.80 [...] 33.0-73.0 Lymph % 42.7 % High 20.0-42.0 [place] % 12.9 % High 0.0-10.0 Eo% 4.0 % Normal 0.0-6.6 Bas% 0.5 % Normal 0.0-1.1 Immature Grans 0.4 % Normal 0.0-5.0 NRBC % 0.0 /100WBC < 10/ 100 WBC Neut# 3.02 K/uL Normal 1.8-7.0 Lymph # 3.27 K/uL Normal 1.0-4.0 [place] # 0.99 K/uL High 0.0-0.8 Eos # 0.31 K/uL Normal 0.0-0.5 Baso # 0.04 K/uL Normal 0.0-0.1 Immature Grans Absolute 0.03 K/uL NRBC # 0.00 K/uL Glycohemoglobin 01/17/2019 [facility] Glycohemoglobin 9.5 % High 4.2-6.[address] (A1c) [place], [place] [id number] [phone] eAG 226 mg/dL Laboratory test 01/17/2019 [facility] PTH,Intact 68 pg/mL High 15-65 [address] [place], [place] [id number] [phone] Vitamin D,25-Hydroxy 42.4 ng/mL 30.0-100.0 10 Phosphorous 3.5 mg/dL Normal 2.5-4.0 Protein/Creatinine 01/17/2019 [facility] Creatinine,Urine 10.0 Not Ratio,Urine [address] mg/dL Estab. [place], [place] [id number] [phone] Protein,Total,Urine 8.9 mg/dL Not Estab. Protein/Creatinine Ratio 890 MG/GCRE High 0-200 11 Comprehensive Metabolic 01/17/2019 [facility] Glucose 249 mg/dL High 74-[address] [place], [place] [id number] [phone] BUN 31 mg/dL High 7-18 Creatinine 2.3 [...] U/L High 45-117 Basic Metabolic Panel 01/07/2019 [facility] Glucose 446 mg/dL High 74-106 13 [address] [place], [place] [id number] [phone] BUN 53 mg/dL High 7-18 Creatinine 3.1 mg/dL High 0.6-1.3 Glom Filtration Rate, Estimate 21 mL/min >60 If 25 mL/min >60 14 BUN/Creat 17.0 ratio Sodium 134 mmol/L Low 136-145 Potassium 3.6 mmol/L Normal 3.5-5.1 Chloride 96 mmol/L Low 98-107 Carbon Dioxide 28 mmol/L Normal 21-32 Anion Gap 10 mEq/L Normal 8-16 Calcium 8.9 mg/dL Normal 8.5-10.1 Basic Metabolic Panel 10/19/2018 [facility] Glucose 261 mg/dL High 74-106 15 [address] [place], [place] [address] [phone] BUN 60 mg/dL High 7-18 Creatinine 2.6 mg/dL High 0.6-1.3 Glom Filtration Rate, Estimate 25 mL/min >60 If 30 mL/min >60 16 BUN/Creat 23.0 ratio Sodium 136 mmol/L Normal 136-145 Potassium 3.5 mmol/L Normal 3.5-5.1 Chloride 94 mmol/L Low 98-107 Carbon Dioxide 36 mmol/L High 21-32 Anion Gap 6 mEq/L Low 8-16 Calcium 9.3 mg/dL Normal 8.5-10.1 Basic Metabolic Panel 09/25/2018 [facility] Glucose 263 mg/dL High 74-[address] [place], [place] [address] [phone] BUN 59 mg/dL High 7-18 Creatinine 3.0 mg/dL High 0.6-1.3 Glom Filtration Rate, Estimate 21 mL/min >60 If 26 mL/min >60 18 BUN/Creat 19.6 ratio Sodium 136 mmol/L Normal 136-145 Potassium 3.5 mmol/L 3.5-5.1 Chloride 98 mmol/L Normal 98-107 Carbon Dioxide 31 mmol/L Normal 21-32 Anion Gap 7 mEq/L Low 8-16 Calcium 8.5 mg/dL Normal 8.5-10.1 Laboratory test 09/25/2018 [facility] Phosphorous 3.5 mg/dL Normal 2.5-4.[address] [place], [place] [address] [phone] PTH,Intact 80 pg/mL High 15-65 19 Protein/Creatinine 09/25/2018 [facility] Creatinine,Urine 47.7 Not Ratio,Urine [address] mg/dL Estab. [place], [place] [id number] [phone] Protein,Total,Urine 23.2 mg/dL Not Estab. Protein/Creatinine Ratio 486 MG/GCRE High 0-200 20 Ua RFX Micro & Culture 09/25/2018 [facility] Urine Color YELLOW Yellow II [address] [place] [address] [phone] Urine Clarity CLEAR Clear Urine Glucose - Dipstick 500 mg/dL High Negative Urine Bilirubin - Dipstick NEGATIVE Negative Urine Ketone NEGATIVE mg/dL Negative Urine Specific [place] 1.010 Normal 1.010-1.030 Urine Blood NEGATIVE Negative Urine PH 7.0 Normal 6.5-7.5 Urine Protein - Dipstick TRACE mg/dL Negative Urine Urobilinogen - Dipstick 0.2 E.U./dL Normal 0.2-1.0 Urine Nitrite - Dipstick NEGATIVE Negative Urine Leuk Esterase NEGATIVE Negative Source: URINE, CLEAN CAT <SEE NOTE> 21 Laboratory test 09/25/2018 [facility] Vitamin 39.8 30.0-100.[address] D,25-Hydroxy ng/[place] [address] [phone] Glycohemoglobin 09/25/2018 [facility] Glycohemoglobin 9.1 % High 4.2-6.[address] (A1c) [place] [address] [phone] eAG 214 mg/dL 1 I48.0, I42.9 2 [...] for more aggressive treatment of glycemia. The [place] Diabetes Association recommends that a primary goal of therapy should be a HbA1c of <7% and that physicians should re-evaluate the treatment regimen in patients with HbA1c values consistently >8%. 9 Performed at: RN - [facility] [address] [id number] Record Center Specialist: Tanika Arndt MD, Phone: [phone] Vitamin D deficiency has been defined by the [place] of [employer] and an Endocrine Society practice guideline as a level of serum 25-OH vitamin D less than 20 ng/mL (1,2). The Endocrine Society went on to further define vitamin D insufficiency as a level between 21 and 29 ng/mL (2). 1. IOM ([place] of Medicine). 2010. Dietary reference intakes for calcium and D. [place]: The National AcademEcato Press. 2. Amalia MF, Albino NC, Andrea DELGADILLO, et al. Evaluation, treatment, and prevention of vitamin D deficiency: an Endocrine Society clinical practice guideline. JCEM. 2010; 96(7):1911-30. Performed at: RN - [facility] [address] [id number] Record Center Specialist: Tanika Arndt MD, Phone: [phone] INFCE Result Units: mg/g creat Performed at: - [facility] [address] [id number] Record Center Specialist: Tanika Arndt MD, Phone: [phone] Note: Persistent reduction for 3 months [...] be found at [email or web address]. 19 Performed at: - [facility] [address] [id number] Record Center Specialist: Tanika Arndt MD, Phone: [phone] INFCE Result Units: mg/g creat Performed at: [address] [id number] Record Center Specialist: Tanika Arndt MD, Phone: [phone] URINE, CLEAN CATCH 22 Vitamin D deficiency has been defined by the [place] of [employer] and an Endocrine Society practice guideline as a level of serum 25-OH vitamin D less than 20 ng/mL (1,2). The Endocrine Society went on to further define vitamin D insufficiency as a level between 21 and 29 ng/mL (2). 1. IOM ([place] of Medicine). 2010. Dietary reference intakes for calcium and D. [place]: The National Academies Press. 2. Amalia MF, [place], Andrea DELGADILLO, et al. Evaluation, treatment, and prevention of vitamin D deficiency: an Endocrine Society clinical practice guideline. JCEM. 2010; 96(7):1911-30. Performed at: [facility] [address] [id number] Record Center Specialist: Tanika Arndt MD, Phone: [phone] 23 Elevated levels of HbA1c suggest the need for more aggressive treatment of glycemia. The [place] Diabetes Association recommends that a primary goal of therapy should be a HbA1c of <7% and that physicians should re-evaluate the treatment regimen in patients with HbA1c values consistently >8%. Procedures Date Code Description Status 02/21/2019 20117 EKG-Tracing And Report Completed 01/31/2019 06886 Echocardiogram Complete Completed 01/31/2019 58552 Pacemaker Interrogaton Eval In Person Completed 01/31/2019 64645 EKG Interpretation And Report Only Completed 01/31/2019 37442 EKG-Tracing And Report Completed 01/17/2019 81101 EKG-Tracing And Report Completed 12/10/2018 39086 Debridement Nails Any Method 6 Or More Completed 12/10/2018 06601 Pare Hyperkeratotic Lesion, Single Completed 10/26/2018 48596 Dual Pacemaker Programming Anayisis, Review And Report Completed 10/09/2018 19594 Dual Pacemaker Programming Anayisis, Review And Report Completed 09/04/2018 29358 Debridement Nails Any Method 1-5 Completed 09/04/2018 15453 Trim Nondystrophic Nails Completed 09/04/2018 01778 Pare Hyperkeratotic Lesion, Single Completed 08/30/2018 17234 Bronchospasm Provocation Evaluation Multi Spirometric Completed Determinati 08/30/2018 15954 Spirometry Completed 02/07/2018 [id number] Diabetic Foot Exam Completed 07/10/2015 98183307 Colonoscopy Completed Medical Devices Description No Information Available Encounters Type Date Location Provider Dx Diagnosis Office Visit 02/21/2019 Cardiology Office Kia Dominguez I48.1 Persistent atrial 1:20p B., PA fibrillation I42.9 Cardiomyopathy, unspecified Z95.0 Presence of cardiac pacemaker I50.9 Heart failure, unspecified N18.4 Chronic kidney disease, stage 4 (severe) Z95.2 Presence of prosthetic heart valve I25.10 Athscl heart disease of [place] coronary artery w/o ang pctrs Office Visit 01/31/2019 10:45a Cardiology Office Angelica I48.0 Paroxysmal atrial Marlyss B., PA fibrillation I50.9 Heart failure, unspecified I42.9 Cardiomyopathy, unspecified I47.2 Ventricular tachycardia Z95.2 Presence of prosthetic heart valve I35.0 Nonrheumatic aortic (valve) stenosis I25.10 Athscl heart disease of [place] coronary artery w/o ang pctrs Z95.0 Presence of cardiac pacemaker Office Visit 01/22/2019 8:40a Primary Care Amparo Hoffman, I35.0 Nonrheumatic aortic Office MD (valve) stenosis N18.4 Chronic kidney disease, stage 4 (severe) E08.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 R60.0 Localized edema I50.9 Heart failure, unspecified Office Visit 01/17/2019 10:20a Cardiology Jolynn Weems I50.9 Heart failure , Office TOMI Smalls, unspecified [employer] I35.0 Nonrheumatic aortic (valve) stenosis I25.10 Athscl heart disease of [place] coronary artery w/o ang pctrs I47.2 Ventricular tachycardia N18.4 Chronic kidney disease, stage 4 (severe) Z95.0 Presence of cardiac pacemaker Office Visit 12/10/2018 8:45a Podiatry Office Sharan, I70.203 Unsp athscl [place] Gualberto, DPM arteries of extremities, bilateral legs E11.9 Type 2 diabetes mellitus without complications B35.1 Tinea unguium L84 Corns and callosities M79.672 Pain in left foot M79.671 Pain in right foot Office Visit 11/08/2018 2:20p Cardiology Johny Merchant I50.9 Heart failure, Office Sundar Cole, [facility] unspecified I35.0 Nonrheumatic aortic (valve) stenosis I25.10 Athscl heart disease of [place] coronary artery w/o ang pctrs I47.2 Ventricular tachycardia N18.4 Chronic kidney disease, stage 4 (severe) R42 Dizziness and giddiness Z95.0 Presence of cardiac pacemaker Office Visit 10/26/2018 1:20p Cardiology Jolynn Weems I50.9 Heart failure , Office TOMI Smalls, unspecified [employer] I35.0 Nonrheumatic aortic (valve) stenosis I25.10 Athscl heart disease of [place] coronary artery w/o ang pctrs I47.2 Ventricular tachycardia Z95.0 Presence of cardiac pacemaker I48.4 Atypical atrial flutter N18.4 Chronic kidney disease, stage 4 (severe) Office Visit 10/09/2018 Cardiology Jolynn Weems I35.0 Nonrheumatic 10:00a Office TOMI Smalls, aortic (valve) [employer]ER stenosis I50.9 Heart failure, unspecified I25.10 Athscl heart disease of [place] coronary artery w/o ang pctrs I47.2 Ventricular tachycardia Z95.0 Presence of cardiac pacemaker I48.4 Atypical atrial flutter N18.4 Chronic kidney disease, stage 4 (severe) Office Visit 10/02/2018 9:30a Primary Care Milton, E08.21 Diabetes due to Office MS Joseline, underlying [employer]ER-C, CNM condition w diabetic nephropathy I35.0 Nonrheumatic aortic (valve) stenosis I50.32 Chronic diastolic (congestive) heart failure N18.4 Chronic kidney disease, stage 4 (severe) B35.1 Tinea unguium R60.0 Localized edema Assessments Date Code Description Provider 02/21/2019 I48.1 Persistent atrial fibrillation Sivan Dominguezlyss B., PA 02/21/2019 I42.9 Cardiomyopathy, unspecified Angelica, Marlyss B., PA 02/21/2019 Z95.0 Presence of cardiac pacemaker Angelica, Marlyss B., PA 02/21/2019 I50.9 Heart failure, unspecified Angelica, Marlyss B., PA 02/21/2019 N18.4 Chronic kidney disease, stage 4 Angelica, Marlyss B., PA (severe) 02/21/2019 Z95.2 Presence of prosthetic heart valve Sivan Dominguezlyss B., PA 02/21/2019 I25.10 Atherosclerotic heart disease of Fanta Dominguezs B., PA [place] coronary artery with 01/31/2019 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 Johny Merchant M.D., disorders [facility] 01/31/2019 I36.1 Nonrheumatic tricuspid (valve) Johny Merchant M.D., insufficiency [facility] 01/31/2019 Z95.2 Presence of prosthetic heart valve Johny Merchant M.D., [facility] 01/31/2019 I47.2 Ventricular tachycardia Johny Merchant M.D., [facility] 01/31/2019 I48.0 Paroxysmal atrial fibrillation Angelica Marlyss B., PA 01/31/2019 I50.9 Heart failure, unspecified Angelica, Marlyss B., PA 01/31/2019 I47.2 Ventricular tachycardia Angelica, Marlyss B., PA 01/31/2019 I42.9 Cardiomyopathy, unspecified Angelica, Marlyss B., PA 01/31/2019 Z95.0 Presence of cardiac pacemaker Johny Merchant M.D., [facility] 01/31/2019 I47.2 Ventricular tachycardia AngelicaKia ponce., PA 01/31/2019 Z95.2 Presence of prosthetic heart valve Kia Dominguez., PA 01/31/2019 I35.0 Nonrheumatic aortic (valve) stenosis AngelicaKia ponce., PA 01/31/2019 I25.10 Atherosclerotic heart disease of AngelicaKia ponce., PA [place] coronary artery with 01/31/2019 Z95.0 Presence of cardiac pacemaker AngelicaKia ponceTony, PA 01/31/2019 Z95.0 Presence of cardiac pacemaker AngelicaKia ponce Izabella., PA 01/22/2019 I35.0 Nonrheumatic aortic (valve) stenosis Ampaor Hoffman MD 01/22/2019 N18.4 Chronic kidney disease, stage 4 Amparo Hoffman MD (severe) 01/22/2019 E08.21 Diabetes mellitus due to underlying Amparo Hoffman MD condition with diabetic 01/22/2019 R60.0 Localized edema Amparo Hoffman MD 01/22/2019 I50.9 Heart failure, unspecified Amparo Hoffman MD 01/17/2019 I50.9 Heart failure, unspecified Jolynn Weems, TOMI, [facility] 01/17/2019 I35.0 Nonrheumatic aortic (valve) stenosis Jolynn Weems , TOMI, [facility] 01/17/2019 I25.10 Atherosclerotic heart disease of Jolynn Weems MSN, [place] coronary artery with [facility] 01/17/2019 I47.2 Ventricular tachycardia Jolynn Weems MSN, [facility] 01/17/2019 N18.4 Chronic kidney disease, stage 4 Jolynn Weems, TOMI , (severe) [facility] 01/17/2019 Z95.0 Presence of cardiac pacemaker Jolynn Weems, TOMI, [facility] 12/10/2018 I70.203 Unspecified atherosclerosis of [place] Gualberto Tsang DPM arteries of extremitie 12/10/2018 E11.9 Type 2 diabetes mellitus without Gualberto Tsang DPM complications 12/10/2018 B35.1 Tinea unguium Gualberto Tsang DPM 12/10/2018 L84 Corns and callosities Gualberto Tsang DP 12/10/2018 M79.672 Pain in left foot Gualberto Tsang, DP 12/10/2018 M79.671 Pain in right foot Gualberto Tsagn, [facility] 11/08/2018 I50.9 Heart failure, unspecified Johny Merchant M.D., [facility] 11/08/2018 I35.0 Nonrheumatic aortic (valve) stenosis Johny Merchant M.D., [facility] 11/08/2018 I25.10 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. , [place] coronary artery with [facility] 11/08/2018 I47.2 Ventricular tachycardia Johny Merchant M.D., [facility] 11/08/2018 N18.4 Chronic kidney disease, stage 4 Johny Merchant M.D., (severe) [facility] 11/08/2018 R42 Dizziness and giddiness Johny Merchant M.D., [facility] 11/08/2018 Z95.0 Presence of cardiac pacemaker Johny Merchant M.D., [facility] 10/26/2018 I50.9 Heart failure, unspecified Jolynn Weems, TOMI, [facility] 10/26/2018 I35.0 Nonrheumatic aortic (valve) stenosis Jolynn Weems , TOMI, [facility] 10/26/2018 I25.10 Atherosclerotic heart disease of Jolynn Weems, TOMI, [place] coronary artery with [facility] 10/26/2018 I47.2 Ventricular tachycardia Jolynn Weems, TOMI, [facility] 10/26/2018 Z95.0 Presence of cardiac pacemaker Jolynn Weems, TOMI, [facility] 10/26/2018 I48.4 Atypical atrial flutter Jolynn Weems, TOMI, [facility] 10/26/2018 N18.4 Chronic kidney disease, stage 4 Jolynn Weems, TOMI , (severe) [facility] 10/09/2018 I47.2 Ventricular tachycardia Johny Merchant M.D., [facility] 10/09/2018 I47.2 Ventricular tachycardia Kia Dominguez, PA 10/09/2018 I35.0 Nonrheumatic aortic (valve) stenosis Jolynn Weems , TOMI, [facility] 10/09/2018 Z95.0 Presence of cardiac pacemaker Johny Merchant M.D., [facility] 10/09/2018 I50.9 Heart failure, unspecified Jolynn Weems, TOMI, [facility] 10/09/2018 I44.0 Atrioventricular block, first degree Johny Merchant M.D., [facility] 10/09/2018 I25.10 Atherosclerotic heart disease of Jolynn Weems, TOMI, [place] coronary artery with [facility] 10/09/2018 Z95.0 Presence of cardiac pacemaker Kia Dominguez, PA 10/09/2018 I47.2 Ventricular tachycardia Jolynn Weems, TOMI, [facility] 10/09/2018 I44.0 Atrioventricular block, first degree Kia Dominguez, PA 10/09/2018 Z95.0 Presence of cardiac pacemaker Jolynn Weems, TOMI, [facility] 10/09/2018 I48.4 Atypical atrial flutter Jolynn Weems, TOMI, [facility] 10/09/2018 N18.4 Chronic kidney disease, stage 4 Jolynn Weems, TOMI , (severe) [facility] 10/02/2018 E08.21 Diabetes mellitus due to underlying Joseline Rose MS , [employer], condition with diabetic [facility] 10/02/2018 I35.0 Nonrheumatic aortic (valve) stenosis Joseline Rose MS , [employer], [facility] 10/02/2018 I50.32 Chronic diastolic (congestive) heart Joseline Rose MS , [employer], failure [facility] 10/02/2018 N18.4 Chronic kidney disease, stage 4 Joseline Rose, , [employer], (severe) [facility] 10/02/2018 B35.1 Tinea unguium Joseline Rose MS, [employer], [facility] 10/02/2018 R60.0 Localized edema Joseline Rose MS, [employer], CN 09/26/2018 E08.21 Diabetes mellitus due to underlying Amparo Hoffman MD condition with diabetic 09/26/2018 I35.0 Nonrheumatic aortic (valve) stenosis Amparo Hoffman MD 09/26/2018 I50.32 Chronic diastolic (congestive) heart Amparo Hoffman MD failure 09/26/2018 N18.4 Chronic kidney disease, stage 4 Amparo Hoffman MD (severe) 09/04/2018 I70.203 Unspecified atherosclerosis of [place] Gualberto Tsang DPM arteries of extremitie 09/04/2018 [...] am - Kia Dominguez PA at Cardiology [id number]/26/2019 9:15 am - Kia Dominguez PA at Cardiology Office Functional Status Functional Condition Comment Date Status Independent with all ADL's Active Oxygen 2 L 24/hr Active Standard cane is used to ambulate Active Mental Status Description No Information Available Referrals Refer to Reason for Referral Status Appt Date [facility] Nephrology Patient used to see group before. Est care Created CKD stage 4. DM retinopathy, neuropathy and nephropathy Aortic stenosis s/p TAVR CHF on diuretics, hx of CAD Baseline Cr 2.3-2.5 02/07/19 faxed notes.... LE 02/19/19 refaxed notes... LE [address] [facility] [address] [place] [address] [phone] Samy Mcclain M.D. Referral for TAVR. Closed 11/27/2018 [facility] [facility] [place], [place] [address] [phone]
[2019-03-27 14:24] VITALS: BP 136/64
--- NOTE | 2019-03-27 14:47 | UC ---
Skin Complaint HPI - HPI Summary HPI Summary: 83-year-old male comes in with a chief complaint of bilateral lower leg redness. Patient has a history of bilateral pedal edema and he is on a diuretic. Reports chronic edema. No fevers or chills. Redness has been there for quite some time it's been getting worse the last couple of days. No complaint of any calf pain chest pain or shortness of breath. Patient is on a blood thinner. - History of Current Complaint Chief Complaint: UCLowerExtremity Time Seen by Provider: 03/27/19 14:29 Stated Complaint: LEG COMP Pain Intensity: 0 - Allergy/Home Medications Allergies/Adverse Reactions: Allergies Allergy/AdvReac Type Severity Reaction Status Date / Time No Known Allergies Allergy Verified 03/27/19 14:24 Home Medications: Home Medications Amiodarone TAB* [Cordarone TAB*] 200 mg PO DAILY 03/27/19 [History Confirmed ] Apixaban* [Eliquis*] 2.5 mg PO BID 03/27/19 [History Confirmed 03/27/19] Furosemide TAB* [Lasix TAB*] 40 mg PO DAILY 03/27/19 [History Confirmed 03/27/19 ] Isosorbide Dinitrate TAB* [Isordil TAB*] 30 mg PO DAILY 03/27/19 [History Confirmed 03/27/19] Levothyroxine TAB* [Synthroid TAB*] 88 mcg PO 0800 03/27/19 [History Confirmed 03/27/19] Metoprolol Tartrate TAB* [Lopressor TAB*] 25 mg PO DAILY 03/27/19 [History Confirmed 03/27/19] Pantoprazole TAB * [Protonix TAB*] 40 mg PO DAILY 03/27/19 [History Confirmed ] PMH/Surg Hx/FS Hx/Imm Hx Previously Healthy: Yes Endocrine History: Diabetes, Hypothyroidism, Dyslipidemia Cardiovascular History: Hypertension, Congestive Heart Failure, Atrial Fibrillation GI/ History: Gastroesophageal Reflux - Surgical History Surgical History: Yes Surgery Procedure, Year, and Place: 2 hernia. 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 aortic valve replaced in December - Family History Known Family History: Negative: Cardiac Disease, Hypertension - Social History Alcohol Use: Rare Substance Use Type: None Smoking Status (MU): Never Smoked Tobacco Type: Smokeless Tobacco Amount Used/How Often: 1-2 times daily occassional cigar Review of Systems All Other Systems Reviewed And Are Negative: Yes Constitutional: Positive: Negative Skin: Positive: Other - SEE HPI Eyes: Positive: Negative ENT: Positive: Negative Respiratory: Positive: Negative Cardiovascular: Positive: Negative Gastrointestinal: Positive: Negative Motor: Positive: Negative Neurovascular: Positive: Negative Musculoskeletal: Positive: Edema. Negative: Calf Tenderness Neurological: Positive: Negative Psychological: Positive: Negative Is Patient Immunocompromised?: No Physical Exam Triage Information Reviewed: Yes Appearance: Well-Appearing, No Pain Distress, Well-Nourished Vital Signs: Initial Vital Signs Temp 97.8 F 03/27/19 14:18 Pulse 82 03/27/19 14:18 Resp 20 03/27/19 14:18 BP 136/64 03/27/19 14:18 Pulse Ox 94 03/27/19 14:18 Vital Signs Reviewed: Yes Eye Exam: Normal Eyes: Positive: Conjunctiva Clear Neck: Positive: Supple Respiratory: Positive: Lungs clear, Normal breath sounds, No respiratory distress Cardiovascular: Positive: RRR Musculoskeletal: Positive: Strength Intact, ROM Intact, Edema @ - Bilateral lower extremity edema. Calves are nontender to palpation. Neurological: Positive: Alert Psychological: Positive: Age Appropriate Behavior Skin: Positive: Other - Bilateral lower extremity anterior edema that is blanching. Normal dorsalis pedis pulses distally. Normal sensation distally. Normal capillary refill distally. No drainage from the legs. Course/Dx - Course Course Of Treatment: Patient has chronic pedal edema. He is on diuretics. Denies any shortness of breath. No calf pain no calf tenderness on exam. Patient is on a blood thinner. We'll treat for cellulitis with Keflex 500 mg by mouth 4 times a day. I let the patient and his son know that if patient did not improve or if he worsened with any signs of infection or congestive heart failure symptoms he needed to get reevaluated in the emergency department. Otherwise he'll be following up with his primary care doctor. - Diagnoses Provider Diagnosis: Bilateral lower leg cellulitis, Edema Discharge ED - Sign-Out/Discharge Documenting (check all that apply): Patient Departure All imaging exams completed and their final reports reviewed: No Studies - Discharge Plan Condition: Stable Disposition: HOME Prescriptions: Cephalexin CAP* [Keflex CAP*] 500 mg PO QID #40 cap Patient Education Materials: Cellulitis (ED), Leg Edema (ED) Referrals: Amparo Hoffman MD [Primary Care Provider] - Additional Instructions: FOLLOW UP WITH YOUR DOCTOR. GO TO THE EMERGENCY DEPARTMENT IF NOT IMPROVING OR WORSE; FEVER, YOU FEEL ILL, SHORTNESS OF BREATH, CHEST PAIN OR ANY QUESTIONS OR CONCERNS. - Billing Disposition and Condition Condition: STABLE Disposition: Home
== END 2019-03-27 14:55 | disposition home or self-care (01) ==
LOC: UCCORT 13:12
DX: Z79.01 Long term (current) use of anticoagulants (principal); L03.116 Cellulitis of left lower limb; L03.115 Cellulitis of right lower limb; R60.9 Edema, unspecified; E11.9 Type 2 diabetes mellitus without complications; E03.9 Hypothyroidism, unspecified; F17.290 Nicotine dependence, other tobacco product, uncomplicated
CPT/HCPCS: 99212; G0463